=== PATIENT | male | born 1970 | race Caucasian/White ===

== ENCOUNTER 2024-02-05 18:44 | Observation (INO) | payer OTHER, SELFPAY ==
[2024-02-05 11:55] VITALS: BP 139/91
[2024-02-05 12:17] LABS: % Basophils 0.6 % (0-2); % Eosinophils 2.7 % (0-6); % Immature Granulocytes 0.2 % (0-0.5); % Lymphocytes 35.1 % (20.5-51.1); % Monocytes 5.5 % (1.7-9.3); % Neutrophils 55.9 % (42.2-75.2); Absolute Eosinophils 0.1 10^3/uL (0-0.7); Absolute Lymphocytes 1.9 10^3/uL (1.2-3.4); Absolute Monocytes 0.3 10^3/uL (0.1-0.6); Hematocrit 36.3 % (39.0-52.0); Mean Corp Hgb Conc. 56.7 g/dL (33.0-37.0); Mean Corpuscular Hgb 53.2 pg (27.0-31.0); Mean Corpuscular Volume 93.8 fL (80.0-94.0); Mean Platelet Volume 9.6 fL (7.4-10.4); Nucleated Red Blood Cells % 0 % (-); Platelet Count 285 10^3/uL (130-400); Red Blood Cell Count 3.87 10^6/uL (4.70-6.10); White Blood Cell Count 5.3 10^3/uL (4.8-10.8)
[2024-02-05 12:22] LABS: Hemoglobin 20.6 g/dL (13.0-18.0)
[2024-02-05 12:49] LABS: ALT (SGPT) 42 U/L (0-50); AST (SGOT) 37 U/L (17-59); Albumin 3.5 g/dl (3.5-5.0); Alkaline Phosphatase 68 U/L (38-126); Blood Urea Nitrogen 12 mg/dl (9-20); Calcium 9.1 mg/dl (8.4-10.2); Carbon Dioxide 17 mmol/L (22-30); Chloride 102 mmol/L (98-107); Glucose 132 mg/dl (70-99); Potassium 4.7 mmol/L (3.5-5.1); Sodium 133 mmol/L (135-145); Total Bilirubin 0.9 mg/dl (0.2-1.3); Total Protein 8.5 g/dl (6.3-8.2); eGFR > 60.00
--- NOTE | 2024-02-05 13:14 | ED.GENMED ---
History of Present Illness
General
Chief Complaint: Abnormal Lab Value
Source: patient and spouse
Time Seen by Provider: 02/05/24 12:35
Travel History
Have you had any contact with someone who has COVID-19?: No
Do you have any symptoms of coronavirus? Fever > 100 degrees, chills, cough, shortness of breath, sore throat, loss of taste or smell, muscle aches, or headache?: No
History of Present Illness
History of Present Illness:
53-year-old male presents to the emergency room at the advice of his primary care provider due to abnormal outpatient labs. Patient has been feeling significant pain in his joints particularly his knees, increased symptoms of neuropathy and whitish
pimples erupting all over his body for the past 3 weeks or so. Outpatient blood work was obtained by his primary care doctor and he was sent because his sodium level was measured to be 119. Blood work results were faxed from the primary care
doctor's office. It is noted on the fax results that he also has a triglyceride level of 12,000 and and a cholesterol level of 1110. Patient does have a history of diabetes. He states he is compliant with his medications. He does take
simvastatin. Patient denies any chest pain, abdominal pain, nausea or vomiting. He is having difficulty walking but it seems more related to his peripheral neuropathy and joint pain. He is not experiencing any confusion which is confirmed by his
. states the patient does drink a large amount of water a day approaching 2 gallons of water a day. He did increase his fluid intake over the past year.
Past History
Past History
ED Past Medical History: Hypercholesterolemia and IDDM
ED Past Surgical History: Orthopedic
Social History
Tobacco: Non-smoker
Personal: Single
Phy Exam
Physical Exam
Physical Exam:
General: Awake, Alert, Oriented X3. Patient appears stable but not practically healthy.
Vitals: unremarkable
Head: Atraumatic
Eyes: Pupils equal, EOMI
Throat: Airway intact, no exudates
Neck: Trachea midline
Lungs: Clear and equal b/l
Heart: Regular rate, no murmurs
Abd: Soft, Nontender, No pulsatile mass
Neuro: Nonfocal
Skin: Warm, dry, xanthomas noted diffusely
Extremities: pulses equal b/l, no edema
Course
Orders/Labs/Results
Orders:
Orders
02/05/24 11:59
Electrocardiogram (*1) Urgent
Reason for Study: Other
Other Reason for Exam: abnormal lab
EKG- Treatment ONCE
02/05/24 12:04
Cardiovascular Evaluation Urgent
Comment: ADD ON
Complete Blood Count/With Diff Urgent
Comprehensive Metabolic Panel Urgent
LDL Cholesterol, Direct Urgent
TSH Urgent
Comment: ADD ON
02/05/24 13:01
Add On- LAB Urgent
Tests Added?: lipid panel
02/05/24 18:01
Admit/Transfer Patient As Directed
Co-Sign Provider:
Level of Care: Observation services
Assign to:: Medical/Surgical
Physician / Group: Maria G
Diagnosis: Hyponatremia, hypertriglyceridemia
02/05/24 18:03
Code Status As Directed
Resuscitation Status: Full Code
02/05/24 18:26
Add On- LAB Routine
Tests Added?: TSH
Abnormal Lab Results
02/05/24
12:04
RBC 3.87 L 10^6/uL
(4.70-6.10)
Hgb 20.6 H* g/dL
(13.0-18.0)
Hct 36.3 L %
(39.0-52.0)
MCH 53.2 H pg
(27.0-31.0)
MCHC 56.7 H g/dL
(33.0-37.0)
Sodium 133 L mmol/L
(135-145)
Carbon Dioxide 17 L mmol/L
(22-30)
Glucose 132 H mg/dl
(70-99)
Total Protein 8.5 H g/dl
(6.3-8.2)
Triglycerides > 2625 H mg/dl
(10-149)
Total Cholesterol 986 H mg/dl
(50-199)
02/05/24 12:04
02/05/24 12:04
Vital Signs
Initial and Last Documented VS:
Initial Vital Signs
Temp Pulse Resp BP Pulse Ox
98.3 F 94 18 139/91 94
02/05/24 11:55 02/05/24 11:55 02/05/24 11:55 02/05/24 11:55 02/05/24 11:55
Last Documented Vital Signs
Temp Pulse Resp BP Pulse Ox
98.3 F 95 18 122/80 94
02/05/24 11:55 02/05/24 15:13 02/05/24 11:55 02/05/24 15:13 02/05/24 15:13
MDM/Problems Addressed
Differential Diagnosis Includes:
hyponatremia, pseudohyponatrenia,hypertriglyceridemia,
MDM/Problems Addressed:
Patient presents with markedly abnormal outpatient labs. Repeat labs here show a normal sodium. I had conversation with the director of pathology who reviewed the lab protocols for hyperlipemia. She does believe the processes were followed and
that the instrumentation they have is working properly and will automatically dilute the specimen and therefore there is no need for ultra centrifugation. Dr. Hall hypothesizes that the process of ultrasound review patient may have especially
lower the sodium. Similar the patient's hemoglobin is markedly abnormal here and normal on [facility]. I also discussed the patient's presentation with Dr. Hayes is on-call for endocrinology. She does not believe there is any urgent need for
plasmapheresis or an insulin drip as the patient is relatively asymptomatic. However she does endorse the idea of observing the patient overnight to check the stability of his lab findings.
*Pulse Oximetry
Patient hypoxic: no
*EKG
Interpreted by ED Provider?: Yes
Interpretation: normal
Heart Rate: 89
Rate: normal
[place]: normal axis
Interval: normal interval
QRS Pattern: right bundle branch block
Ischemia: no ischemia
*Frame Assembler Interpretation
Rate: normal
Interpretation: normal
Heart Rate: 89
Rhythm: sinus
*Critical Care Note
Total Time (30-74mins, 75-104mins- exclusive of procedures): Not Applicable
ED Attending Note
-
Portions of this chart may have been created with voice recognition software.� Occasional wrong word or��sound alike� substitutions may have occurred due to the inherent limitations of voice recognition software.
Discharge Plan
Departure
Patient Disposition: Admit
Date of Disposition: 02/05/24
Time of Disposition: 17:30
Admit to: Med/Surg
Presentation/result/management discussed w/ accepting MD/DO: Hospitalist
Condition: Fair
Discharge Problem:
Hypertriglyceridemia, Abnormal blood electrolyte level
Interventions
Interventions:
*Risk Screen - Suicide Last Done: 02/05/24 11:58
*General Assessment Last Done: 02/05/24 11:58
*Neglect/Abuse Screening Last Done: 02/05/24 11:58
[2024-02-05 14:00] LABS: HDL Cholesterol 16 mg/dl; Total Cholesterol 986 mg/dl (50-199); Triglyceride > 2625 mg/dl (10-149)
[2024-02-05 14:44] LABS: LDL Cholesterol, Direct 340 mg/dl
[2024-02-05 15:13] VITALS: BP 122/80
--- NOTE | 2024-02-05 18:05 | HPS.HSE ---
Family Physician
-
Family Physician: Bo De La Paz
Chief Complaint
-
Abnormal blood work
History of Present Illness
53-year-old male referred to the emergency room by his primary care doctor for evaluation of abnormal blood work.
Patient himself has no new complaints. He does have chronic peripheral neuropathy with pain in his lower extremities.
Does suffer from type 2 diabetes as well as combined hyperlipidemia.
Also suffers from chronic insomnia.
Medical History
Past Medical History
Past Medical History: Reports Other
Additional Past Medical History:
DM2
Diabetic peripheral neuropathy
combined hyperlipidemia
Past Surgical History: Reports Orthopedic
Social History
Tobacco: Non-smoker
Alcohol: None
Drug: None
Family History
Family History: Not pertinent
Allergies / Home Medications
Allergies reflects when Allergies were last updated in [facility].
Home Medications with original date entered in [facility]
Allergy/Medication List:
Allergies
Allergy/AdvReac Type Severity Reaction Status Date / Time
aspirin Allergy Severe Unknown Verified 02/05/24 11:55
Home Medications
acetaminophen 500 mg tablet (Tylenol Extra Strength) 1,000 mg PO DAILY 02/05/24
acetylcysteine 600 mg capsule (NAC) 600 mg PO DAILY 02/05/24
celecoxib 200 mg capsule 200 mg PO DAILY 02/05/24
cyanocobalamin (vitamin B-12) 1,000 mcg tablet 2,000 mcg PO DAILY 02/05/24
dulaglutide 3 mg/0.5 mL subcutaneous pen injector (Trulicity) 3 mg SC MO@2200 02/05/24
empagliflozin 25 mg tablet (Jardiance) 25 mg PO DAILY 02/05/24
fenofibric acid (choline) 135 mg capsule,delayed release 135 mg PO DAILY 02/05/24
folic acid 800 mcg tablet 0.8 mg PO DAILY 02/05/24
glipizide 5 mg tablet 10 mg PO QPM 02/05/24
ibuprofen 200 mg tablet (Motrin IB) 600 mg PO QPM 02/05/24
metformin 1,000 mg tablet 1,000 mg PO BID 02/05/24
pregabalin 300 mg capsule 300 mg PO BID 02/05/24
pyridoxine (vitamin B6) 100 mg tablet 100 mg PO DAILY 02/05/24
simvastatin 40 mg tablet 40 mg PO DAILY 02/05/24
therapeutic multivitamin 1 tab PO DAILY 02/05/24
tramadol 50 mg tablet 100 mg PO HS 02/05/24
Review of Systems
-
History Source: Patient
A 12 point ROS was completed and negative except as noted: Yes
Physical Exam
Vital Signs
Vital Signs
Temp Pulse Resp BP Pulse Ox
98.3 F 95 18 122/80 94
02/05/24 11:55 02/05/24 15:13 02/05/24 11:55 02/05/24 15:13 02/05/24 15:13
Physical Exam
General: Well Developed, Well Nourished, No Apparent Distress and Comfortable
HEENT: NormoCephalic, Anicteric and Moist mucous membranes
Respiratory: Clear
Cardiac: S1/S2 and Regular Rhythm
GI: Soft, Non Tender and Non Distended
Genito-urinary: Deferred by me
Musculoskeletal: No Clubbing, No Cyanosis and No Edema
Skin: Warm and Dry
Neuro: AO x 3
Hematologic/Lymphatic: No Lymphadenopathy
Psych: Calm
Laboratory Results
-
02/05/24 12:04
02/05/24 12:04
Laboratory Results
Total Bilirubin 0.9 mg/dl (0.2-1.3) 02/05/24 12:04
AST 37 U/L (17-59) 02/05/24 12:04
ALT 42 U/L (0-50) 02/05/24 12:04
Alkaline Phosphatase 68 U/L (38-126) 02/05/24 12:04
Impression/Plan
-
Hyponatremia -sodium on our lab is 133. He admits to drinking 2 gallons of water daily. Recommend fluid restriction, 1-1/2 to 2 L daily. Discussed with patient and .
Suspect hyperglycemia at home also triggers his thirst. Ideally better glucose control should help improve this.
Combined hyperlipidemia -he follows up with his primary care doctor and and fixed wing aircraft crew chief. This will need to be addressed as an outpatient. Weight loss should help with his lipid levels as well as diabetes control.
DM2 with hyperglycemia -will resume home meds. Check hemoglobin A1c. Use low resistance scale. Follow-up with fixed wing aircraft crew chief.
Diabetic peripheral neuropathy
Chronic insomnia -recommend outpatient follow-up with sleep specialist. Needs to work on sleep hygiene.
Obesity due to excess calories -weight loss encouraged.
Full code
updated at the bedside.
[2024-02-05 19:11] LABS: TSH 0.88 uIU/ml (0.47-4.68)
[2024-02-05 20:18] VITALS: BP 141/78
--- NOTE | 2024-02-05 21:00 | PTCARENOTE ---
Received patient from ED via stretcher. Patient ambulated from stretcher to bed independently. AAOx3, no current complaints of pain. Oriented patient to room and placed call montesinos within reach.
[2024-02-05 21:02] VITALS: BP 156/90; BMI 26.4
[2024-02-05 21:03] LABS: Glucose - Point of Care 176 mg/dl (70-99)
[2024-02-05] MEDS: GLUCOPHAGE PO (22:27)
[2024-02-05] MEDS: ULTRAM 100 MG PO (22:27)
[2024-02-05 23:34] VITALS: BP 129/79
[2024-02-06 07:00] VITALS: BP 138/87
[2024-02-06 08:10] LABS: Glucose - Point of Care 141 mg/dl (70-99)
[2024-02-06 08:25] LABS: Blood Urea Nitrogen 19 mg/dl (9-20); Calcium 8.7 mg/dl (8.4-10.2); Carbon Dioxide 18 mmol/L (22-30); Chloride 103 mmol/L (98-107); Estimated Creatinine Clearance 91 ml/min; Glucose 123 mg/dl (70-99); Potassium 4.5 mmol/L (3.5-5.1); Sodium 134 mmol/L (135-145); eGFR > 60.00
[2024-02-06] MEDS: VITAMIN B-12 2000 MCG PO (08:42)
[2024-02-06] MEDS: VITAMIN B-6 100 MG PO (08:42)
[2024-02-06] MEDS: TYLENOL 1000 MG PO (08:42)
[2024-02-06] MEDS: TRICOR 145 MG PO (08:42)
[2024-02-06] MEDS: JARDIANCE 25 MG PO (08:42)
[2024-02-06] MEDS: FOLVITE 0.800000000000000044 MG PO (08:42)
[2024-02-06] MEDS: THERAGRAN 1 TABLET PO (08:42)
[2024-02-06] MEDS: CELEBREX 200 MG PO (08:42)
[2024-02-06] MEDS: GLUCOPHAGE 1000 MG PO (08:43)
[2024-02-06 08:49] LABS: % Basophils 0.4 % (0-2); % Eosinophils 1.6 % (0-6); % Immature Granulocytes 0.3 % (0-0.5); % Lymphocytes 34.2 % (20.5-51.1); % Monocytes 8.9 % (1.7-9.3); % Neutrophils 54.6 % (42.2-75.2); Absolute Eosinophils 0.1 10^3/uL (0-0.7); Absolute Lymphocytes 2.3 10^3/uL (1.2-3.4); Absolute Monocytes 0.6 10^3/uL (0.1-0.6); Absolute Neutrophils 3.7 10^3/uL (1.4-6.5); Hematocrit 34.3 % (39.0-52.0); Hemoglobin 17.9 g/dL (13.0-18.0); Mean Corpuscular Hgb 48.1 pg (27.0-31.0); Mean Corpuscular Volume 92.2 fL (80.0-94.0); Mean Platelet Volume 10.1 fL (7.4-10.4); Nucleated Red Blood Cells % 0 % (-); Platelet Count 279 10^3/uL (130-400); Red Blood Cell Count 3.72 10^6/uL (4.70-6.10); White Blood Cell Count 6.8 10^3/uL (4.8-10.8)
[2024-02-06 08:51] LABS: Mean Corp Hgb Conc. 52.2 g/dL (33.0-37.0)
--- NOTE | 2024-02-06 08:51 | W.PN.HOSP.TC ---
Today's Communication/Plan
-
Discharge
Assessment / Plan
Assessment / Plan
Gen-AAOx3, NAD
HEENT-NC, AT, anicteric, clear oral mm
Neck-supple
CV-reg, no M, +S1/S2
Lungs-clear B/L
Abd-soft, NT, ND
Ext-no edema
Musculoskeletal-no cyanosis, clubbing, multiple xanthomas on his extremities
Skin-warm and dry
Neuro-grossly non-focal
Psych-calm, cooperative
Hyponatremia -sodium 134 today. Continue 1.5 to 2 L/day fluid restriction. Discussed with patient.
Combined hyperlipidemia -he follows up with his primary care doctor and and program manager.� This will need to be addressed as an outpatient.� Weight loss should help with his lipid levels as well as diabetes control.
DM2 with hyperglycemia -will resume home meds.� Check hemoglobin A1c.� Use low resistance scale.� Follow-up with program manager.
Diabetic peripheral neuropathy
Chronic insomnia -recommend outpatient follow-up with sleep specialist.� Needs to work on sleep hygiene.
Obesity due to excess calories -weight loss encouraged.
Full code
Dispo -medically stable for discharge today. Outpatient follow-up recommended. Discussed with on the phone.
32 minutes spent in discharge process.
Anticipated Discharge: Today
Subjective/Interval History
-
Date of Service: February 06, 2024
Patient seen and examined. Eager to go home. No complaints.
Objective Data
-
Labs:
Laboratory Results
02/06/24
07:04
WBC Pending
Hgb Pending
Hct Pending
Plt Count Pending
Sodium 134 L
Potassium 4.5
Chloride 103
Carbon Dioxide 18 L
BUN 19
Creatinine 0.9
Glucose 123 H
Calcium 8.7
Vital Signs:
Vital Signs
Temp Pulse Resp BP Pulse Ox
97.6 F 80 18 138/87 97
02/06/24 07:00 02/06/24 07:00 02/06/24 07:00 02/06/24 07:00 02/06/24 07:00
I&O
02/05/24 02/06/24 02/07/24
06:59 06:59 06:59
Intake Total 240 / 240
Balance 240 / 240
Review of Systems
-
History Source: Patient
All other systems: Reviewed and negative
--- NOTE | 2024-02-06 09:29 | CM ---
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
PCP: Allison De La Paz
Plan; Home today no needs.
--- NOTE | 2024-02-06 09:31 | W.DS.TRANS ---
DC Summary - Hat Model
-
Discharge Instructions:
Discharge Diagnosis/Procedures Hyponatremia, mixed hyperlipidemia
Diet Low Fat,Low Cholesterol,Diabetic, Carb
Controlled
Activity As tolerated
Driving Restrictions As prior to admission
Bathing Restrictions None
Instructions:
Stand-Alone Forms:
Changes to Home Medications: No
Discharge Medications:
DC Medications w/original date entered in [facility]
acetaminophen 500 mg tablet (Tylenol Extra Strength) 1,000 mg PO DAILY Pain 02/05/24
acetylcysteine 600 mg capsule (NAC) 600 mg PO DAILY Lung/Breathing Issues 02/05/24
celecoxib 200 mg capsule 200 mg PO DAILY Pain 02/05/24
cyanocobalamin (vitamin B-12) 1,000 mcg tablet 2,000 mcg PO DAILY Supplement 02/05/24
dulaglutide 3 mg/0.5 mL subcutaneous pen injector (Trulicity) 3 mg SC MO@2200 Diabetes 02/05/24
empagliflozin 25 mg tablet (Jardiance) 25 mg PO DAILY Diabetes 02/05/24
fenofibric acid (choline) 135 mg capsule,delayed release 135 mg PO DAILY High Cholesterol 02/05/24
folic acid 800 mcg tablet 0.8 mg PO DAILY Supplement 02/05/24
glipizide 5 mg tablet 10 mg PO QPM Diabetes 02/05/24
ibuprofen 200 mg tablet (Motrin IB) 600 mg PO QPM Pain 02/05/24
metformin 1,000 mg tablet 1,000 mg PO BID Diabetes 02/05/24
pregabalin 300 mg capsule 300 mg PO BID Neurological Condition 02/05/24
pyridoxine (vitamin B6) 100 mg tablet 100 mg PO DAILY Supplement 02/05/24
simvastatin 40 mg tablet 40 mg PO DAILY High Cholesterol 02/05/24
therapeutic multivitamin 1 tab PO DAILY Supplement 02/05/24
tramadol 50 mg tablet 100 mg PO HS Sleep 02/05/24
Home Medication Changes
Pending Results: No
--- NOTE | 2024-02-06 10:01 | PTCARENOTE ---
Reviewed discharge instructions with patient. Patient verbalizes understanding all education including need for follow up. IV removed. Patient left unit ambulatory as he refused a wheelchair.
[2024-02-06 11:19] LABS: Glycohemoglobin (HgbA1c) 7.4 % (4.0-5.6)
== END 2024-02-06 10:22 | disposition home or self-care (01) ==
LOC: 4 EAST ACU 18:44
PROVIDERS: Emergency Medicine; ADMITTING PHYSICIAN Hospitalist; EMERGENCY PHYSICIAN Emergency Medicine; FAMILY PHYSICIAN Family Medicine
DX: E87.1 Hypo-osmolality and hyponatremia (principal); E78.2 Mixed hyperlipidemia; E11.42 Type 2 diabetes mellitus with diabetic polyneuropathy; F51.04 Psychophysiologic insomnia; E11.65 Type 2 diabetes mellitus with hyperglycemia; I45.10 Unspecified right bundle-branch block; E66.09 Other obesity due to excess calories; Z88.6 Allergy status to analgesic agent; Z79.1 Long term (current) use of non-steroidal anti-inflammatories (NSAID); Z79.85 Long-term (current) use of injectable non-insulin antidiabetic drugs; Z79.84 Long term (current) use of oral hypoglycemic drugs; Z68.26 Body mass index [BMI] 26.0-26.9, adult
CPT/HCPCS: 80048; 80053; 80061; 82962; 83036; 83721; 84443; 85025; 93005; 99285; G0378

== ENCOUNTER → 2024-03-15 13:19 | Outpatient (REF) | payer OTHER, SELFPAY | LOC: PAVMRI 13:19 | PROVIDERS: ATTENDING PHYSICIAN Family Medicine | DX: M51.26 Other intervertebral disc displacement, lumbar region (principal) | CPT/HCPCS: 72148 ==

== ENCOUNTER → 2024-04-20 14:38 | Outpatient (REF) | payer OTHER, SELFPAY | LOC: HWRCS 14:38 | PROVIDERS: ATTENDING PHYSICIAN Internal Medicine Cardiovascular Disease; FAMILY PHYSICIAN Family Medicine | DX: I45.10 Unspecified right bundle-branch block (principal) | CPT/HCPCS: 93306 ==

== ENCOUNTER 2025-01-20 07:24 | Inpatient (IN) | payer OTHER, SELFPAY ==
[2025-01-19] VITALS (8 sets, daily range): BP systolic 138–151; BP diastolic 88–97; BMI 25.7
[2025-01-19 16:17] LABS: ALT (SGPT) 36 U/L (0-50); AST (SGOT) 34 U/L (17-59); Albumin 3.1 g/dl (3.5-5.0); Alkaline Phosphatase 62 U/L (38-126); Blood Urea Nitrogen 12 mg/dl (9-20); Calcium 8.2 mg/dl (8.4-10.2); Carbon Dioxide 10 mmol/L (22-30); Chloride 95 mmol/L (98-107); Glucose 242 mg/dl (70-99); Potassium 4.1 mmol/L (3.5-5.1); Sodium 128 mmol/L (135-145); Total Protein 8.1 g/dl (6.3-8.2); eGFR > 60.00
[2025-01-19 16:47] LABS: % Basophils 0.6 % (0-2); % Eosinophils 2.7 % (0-6); % Immature Granulocytes 0.4 % (0-0.5); % Lymphocytes 15.9 % (20.5-51.1); % Monocytes 7.8 % (1.7-9.3); % Neutrophils 72.6 % (42.2-75.2); Absolute Eosinophils 0.1 10^3/uL (0-0.7); Absolute Lymphocytes 0.8 10^3/uL (1.2-3.4); Absolute Monocytes 0.4 10^3/uL (0.1-0.6); Absolute Neutrophils 3.6 10^3/uL (1.4-6.5); Hematocrit 30.5 % (39.0-52.0); Hemoglobin 9.8 g/dL (13.0-18.0); Mean Corp Hgb Conc. 32.1 g/dL (33.0-37.0); Mean Corpuscular Hgb 32.1 pg (27.0-31.0); Mean Platelet Volume 9.6 fL (7.4-10.4); Nucleated Red Blood Cells % 0 % (-); Platelet Count 192 10^3/uL (130-400); Red Blood Cell Count 3.05 10^6/uL (4.70-6.10); Red Cell Dist. Width 13.7 % (11.5-14.5); White Blood Cell Count 4.9 10^3/uL (4.8-10.8)
--- NOTE | 2025-01-19 18:07 | ED.GENMED ---
History of Present Illness
General
Chief Complaint: Abnormal Lab Value
Time Seen by Provider: 01/19/25 17:57
History of Present Illness
History of Present Illness:
Patient presents to the emergency department with nausea vomiting, weight loss, low sodium on outpatient labs. Patient notes that he had a sinus infection last week and was started on Ceftin. Since then he has been having very elevated blood
sugars with sugars usually in the 300s. Over the past few days he has had significant nausea and vomiting and has lost about 10 pounds over the past few days. Denies fevers or chills. Denies pain. Denies significant from rectum or orally.
Past History
Past History
ED Past Medical History: Hypercholesterolemia and IDDM
ED Past Surgical History: Orthopedic
Social History
Tobacco: Non-smoker
Personal: Single
Phy Exam
Physical Exam
Physical Exam:
GENERAL APPEARANCE: Pale, in no acute distress
EYES lids/conjunctiva normal
EARS/NOSE/THROAT Mucous membranes moist, uvula midline without oral pharyngeal erythema, exudate or swelling
HEAD/NECK normocephalic atraumatic, neck is supple.
RESPIRATORY respiratory effort normal, speaks in full sentences, no accessory muscle use. Lungs clear to auscultation without rhonchi, wheezes, rales
CARDIAC regular tachycardia
ABDOMINAL Soft, ND/NT. No pulsatile masses on exam, rebound tenderness, Chaudhari sign or pain over Mcburney's point.
MUSCLES/EXTREMITIES No abnormal range of motion, no swelling.
SKIN Warm, pink and dry. No rashes
NEUROLOGICAL Speech is clear and appropriate. Normal level of consciousness. 5/5 strength in all extremities.
PSYCH Normal mood and affect. Judgement/competence is appropriate
Course
Orders/Labs/Results
Orders:
Orders
01/19/25 15:20
CMP [Comprehensive Metabolic Panel] Urgent
Complete Blood Count/With Diff Urgent
01/19/25 18:05
0.9% Sodium Chloride 1000 ml [Nss] 1,000 ml IV BOLUS
0.9% Sodium Chloride 1000 ml [Nss] 1,000 ml IV BOLUS
01/19/25 18:23
B-Hydroxybutyrate Urgent
Glycohemoglobin (HgbA1c) Urgent
Lactate Level [Lactic Acid] Urgent
Venous Blood Gas Urgent
%Oxygen/Room Air: room air
01/19/25 20:23
Basic Metabolic Panel Urgent
Complete Blood Count/No Diff Urgent
Urinalysis Urgent
Date Specimen was Collected: 01/19/25
Time Specimen was Collected: 19:45
Urine Microscopic Urgent
Date Specimen was Collected: 01/19/25
Time Specimen was Collected: 19:45
01/19/25 21:52
Add On- LAB Stat
Tests Added?: lipase, etoh
01/19/25 21:53
Add On- LAB Stat
Tests Added?: triglecyrides
Abnormal Lab Results
01/19/25 01/19/25 01/19/25
15:20 18:23 20:23
RBC 3.05 L 10^6/uL
(4.70-6.10)
Hgb 9.8 L g/dL
(13.0-18.0)
Hct 30.5 L %
(39.0-52.0)
MCV 100.0 H fL
(80.0-94.0)
MCH 32.1 H pg
(27.0-31.0)
MCHC 32.1 L g/dL
(33.0-37.0)
Absolute Lymphs (auto) 0.8 L 10^3/uL
(1.2-3.4)
Lymphocytes % 15.9 L %
(20.5-51.1)
VBG pO2 57 H mmHg
(30-50)
Sodium 128 L mmol/L 132 L mmol/L
(135-145) (135-145)
Chloride 95 L mmol/L
(98-107)
Carbon Dioxide 10 L* mmol/L 13 L* mmol/L
(22-30) (22-30)
Glucose 242 H mg/dl 105 H mg/dl
(70-99) (70-99)
Calcium 8.2 L mg/dl 7.4 L mg/dl
(8.4-10.2) (8.4-10.2)
Albumin 3.1 L g/dl
(3.5-5.0)
Urine Ketones 3+ A
(Negative)
Urine Occult Blood 4+ A
(Negative)
Urine RBC 30-40 A /HPF
(0-2)
Urine Bacteria Few A
(Negative)
Urine Yeast Few A
(Negative)
Urine Glucose 4+ A
(Negative)
Urine Albumin 3+ A
(Neg - Trace)
01/19/25 20:23
Vital Signs
Initial and Last Documented VS:
Initial Vital Signs
Temp Pulse Resp BP Pulse Ox
97.3 F 119 20 140/94 95
01/19/25 15:11 01/19/25 15:11 01/19/25 15:11 01/19/25 15:11 01/19/25 15:11
Last Documented Vital Signs
Temp Pulse Resp BP Pulse Ox
97.3 F 105 17 142/97 95
01/19/25 15:11 01/19/25 19:45 01/19/25 19:45 01/19/25 19:00 01/19/25 19:45
*Critical Care Note
Total Time (30-74mins, 75-104mins- exclusive of procedures): Not Applicable
ED Attending Note
ED Attending Note
ED Attending Note:
presents with nausea and vomiting x 2 days , 10lb weight loss over past week
initial labs with BG 242, Na 128, CO2 10, Cr 0.8 , AG 23
urine ketones +, BHB negative, lactate negative
given 2L NS
repeat BMP with improving glucose to 102, Na 132, CO13, AG17
VBG with ph 7.38, pCO2 41
initial concern was for normoglycemic DKA since he is on Jardiance
however it just seems like he has a significant ketosis without acidosis
I have just been giving fluid and gap is closing
no abdominal tenderness to suggest intraabdominal emergency.
Patient also noted to have a macrocytic anemia of unclear etiology
no active bleeding reported, no evdience of internal injury or hemolysis
will admit to hospitalist for further management and workup
-
Portions of this chart may have been created with voice recognition software.� Occasional wrong word or��sound alike� substitutions may have occurred due to the inherent limitations of voice recognition software.
Discharge Plan
Departure
Patient Disposition: Admit
Date of Disposition: 01/19/25
Time of Disposition: 21:42
Presentation/result/management discussed w/ accepting MD/DO: Hospitalist
Discharge Problem:
Acute hyponatremia, Diabetic ketosis
Prescriptions:
No Action
tramadol 50 mg Tablet
100 mg PO HS
acetaminophen [Tylenol Extra Strength] 500 mg Tablet
500 mg PO Q6HPRN PRN (Reason: mild pain)
metformin 1,000 mg Tablet
1,000 mg PO BID
glipizide 5 mg Tablet
10 mg PO QPM
Jardiance 25 mg Tablet
25 mg PO DAILY
Trulicity 3 mg/0.5 mL Pen Injector
3 mg SC FR
cyclobenzaprine 10 mg Tablet
10 mg PO HS
gabapentin 600 mg Tablet
600 mg PO BID
cefuroxime axetil 250 mg Tablet
250 mg PO BID
ondansetron [Zofran ODT] 8 mg Tablet,Disintegrating
8 mg PO Q8HPRN PRN (Reason: nausea)
rosuvastatin 10 mg Tablet
10 mg PO DAILY
eszopiclone [Lunesta] 3 mg Tablet
3 mg PO HS
icosapent ethyl 1 gram Capsule
2 g PO BID
Referrals:
Bo De La Paz, DO [Family Provider] -
Interventions
Interventions:
*Risk Screen - Suicide Last Done: 01/19/25 15:15
*General Assessment Last Done: 01/19/25 18:31
*Neglect/Abuse Screening Last Done: 01/19/25 18:31
*ED COVID-19 Vaccine History Last Done: 01/19/25 18:31
Discharge Date and Time
Print Language: LATVIAN
[2025-01-19] MEDS: NSS 1000 IV ×2 (18:24→18:25)
[2025-01-19 18:32] LABS: Venous Blood Gas B.E. -0.9 mmol/L (-4 to +4); Venous Blood Gas HCO3 24.3 mmol/L (22-27); Venous Blood Gas O2 Sat % 94.6 %; Venous Blood Gas pCO2 41 mmHg (35-48); Venous Blood Gas pH 7.38 (7.32-7.43); Venous Blood Gas pO2 57 mmHg (30-50)
[2025-01-19 18:44] LABS: Lactic Acid 1.2 mmol/L (0.7-2.0)
[2025-01-19 20:11] LABS: B-Hydroxybutyrate 0.08 mmol/L (0.02-0.27)
[2025-01-19 20:34] LABS: Urine Albumin 3+ (Neg - Trace); Urine Bilirubin Negative (Negative); Urine Character Clear (Clear); Urine Color Yellow; Urine Glucose 4+ (Negative); Urine Ketone 3+ (Negative); Urine Leukocyte Negative (Negative); Urine Nitrite Negative (Negative); Urine Occult Blood 4+ (Negative); Urine Urobilinogen Negative (Neg - 1+)
[2025-01-19 21:27] LABS: Blood Urea Nitrogen 13 mg/dl (9-20); Calcium 7.4 mg/dl (8.4-10.2); Carbon Dioxide 13 mmol/L (22-30); Chloride 102 mmol/L (98-107); Glucose 105 mg/dl (70-99); Potassium 3.6 mmol/L (3.5-5.1); Sodium 132 mmol/L (135-145); eGFR > 60.00
[2025-01-19 21:28] LABS: Urine Squamous Cell 0-2 /LPF (Few)
[2025-01-19 21:29] LABS: Urine Bacteria Few (Negative); Urine Red Blood Cell 30-40 /HPF (0-2); Urine White Cell 0-2 /HPF (0-5); Urine Yeast Few (Negative)
[2025-01-19 21:58] LABS: Red Blood Cell Count 3.91 10^6/uL (4.70-6.10); White Blood Cell Count 7.8 10^3/uL (4.8-10.8)
[2025-01-19 22:00] LABS: Platelet Count 249 10^3/uL (130-400)
[2025-01-19 22:01] LABS: Hemoglobin 14.3 g/dL (13.0-18.0)
--- NOTE | 2025-01-19 22:19 | HPS.HSE ---
Family Physician
-
Family Physician: Bo De La Paz
Chief Complaint
-
Abnormal lab values
History of Present Illness
This is a 54-year-old male with past medical history of diabetes, hypertriglyceridemia, presenting to the emergency department for evaluation of abnormal lab work.
He had a routine follow-up lab work for endocrine clinic that showed low sodium and low bicarb. Patient was sent to the emergency department for evaluation of this finding. Patient and spouse reports few days of sinus illness. He has sinus
congestion and was diagnosed with sinusitis. Was started on Ceftin. The patient also has been having nausea and vomiting for the last 2 days. Spouse reports urine output has been similar to prior. He has a continuous glucose monitoring and
spouse reported that it has been elevated for the last 3 days to as high as 300s. Patient himself denies any abdominal pain. He has been compliant with his usual medications. They have been compliant with his diet. He denies polyuria. He does
not feel polydipsia. He states he is lost about 10 pounds over the last 3 days. Denies any fevers or chills. Denies any lightheadedness or dizziness. He denies any headaches. Denies any vision changes.
Patient denies any ingestions including alcohol, recreational drugs, or NSAIDs. Reports using Tylenol about 1 g daily with last 2 to 3 weeks. Denies chronic Tylenol use otherwise.
In the emergency department he was afebrile, blood pressure was 140/90 pulse of 105 respiratory rate of 17 satting 95% on room air. CBC was notable for hemoglobin of 9.8 which is down from 17 a year ago. Platelet count was normal. MCV was
elevated at 100. Sodium was 128, potassium 4.1, bicarb 10 BUN/creatinine were 12 and 0.8 with a glucose of 245. Venous blood gas was 7 point 3/41/57/20 4.3. 3+ urine ketones. Beta-hydroxybutyrate was negative.
Given 2 L of normal saline. Repeat labs showed sodium of 132, potassium 3.6, bicarb 13. Chloride 102. Glucose 104. The anion gap was 17. LFTs normal.
Medical History
Past Medical History
Past Medical History: Reports Hypercholesterolemia (Severe triglyceridemia), NIDDM and Other (Duodenal ulcer)
Additional Past Medical History:
Hepatitis B no treatment
Benitez's palsy
History of Lyme disease
Past Surgical History: Reports Other (Tarsal tunnel release, history of hand surgeries)
Social History
Tobacco: Non-smoker
Alcohol: None
Drug: None
Personal:
Living: With Family
Employment: Not Employed
Family History
Family History: Not pertinent
Allergies / Home Medications
Allergies reflects when Allergies were last updated in [facility].
Home Medications with original date entered in [facility]
Allergy/Medication List:
Allergies
Allergy/AdvReac Type Severity Reaction Status Date / Time
aspirin Allergy Severe Unknown Verified 01/19/25 15:12
Home Medications
acetaminophen 500 mg tablet (Tylenol Extra Strength) 500 mg PO Q6HPRN PRN mild pain 02/05/24
dulaglutide 3 mg/0.5 mL subcutaneous pen injector (Trulicity) 3 mg SC FR Diabetes 02/05/24
empagliflozin 25 mg tablet (Jardiance) 25 mg PO DAILY Diabetes 02/05/24
glipizide 5 mg tablet 10 mg PO QPM Diabetes 02/05/24
metformin 1,000 mg tablet 1,000 mg PO BID Diabetes 02/05/24
tramadol 50 mg tablet 100 mg PO HS Sleep 02/05/24
cefuroxime axetil 250 mg tablet 250 mg PO BID 01/19/25
cyclobenzaprine 10 mg tablet 10 mg PO HS 01/19/25
eszopiclone 3 mg tablet (Lunesta) 3 mg PO HS 01/19/25
gabapentin 600 mg tablet 600 mg PO BID 01/19/25
icosapent ethyl 1 gram capsule 2 g PO BID 01/19/25
ondansetron 8 mg disintegrating tablet 8 mg PO Q8HPRN PRN nausea 01/19/25
rosuvastatin 10 mg tablet 10 mg PO DAILY 01/19/25
Review of Systems
-
History Source: Patient
Constitutional: Reports Weight Loss and Fatigue
EENT: Reports Runny Nose
Respiratory: Reports No Symptoms
Cardiac: Reports No Symptoms
Abdomen/GI: Reports Nausea and Vomiting; Denies Diarrhea, Constipated or Pain
: Reports No Symptoms
Musculoskeletal: Reports No Symptoms
Skin: Reports No Symptoms
Neurological: Reports No Symptoms
Endocrine: Reports No Symptoms
Hematologic/Lymphatic: Reports No Symptoms
Psych: Reports No Symptoms
Physical Exam
Vital Signs
Vital Signs
Temp Pulse Resp BP Pulse Ox
97.3 F 105 17 142/97 95
01/19/25 15:11 01/19/25 19:45 01/19/25 19:45 01/19/25 19:00 01/19/25 19:45
Physical Exam
General: Well Developed, No Apparent Distress, Comfortable and Conversant
HEENT: NormoCephalic, Anicteric, Moist mucous membranes and Atraumatic
Respiratory: Clear
Cardiac: S1/S2 and Regular Rhythm
Breast: Deferred by me
GI: Soft, Non Tender, Non Distended and Normal Bowel Sounds
Rectal: Deferred by Provider
Genito-urinary: Deferred by me
Musculoskeletal: No Clubbing, No Cyanosis and No Edema
Skin: Warm and Other (occasional xanthoma papuls in LE)
Neuro: AO x 3 and Nonfocal/grossly intact
Hematologic/Lymphatic: No Lymphadenopathy
Psych: Calm
Laboratory Results
-
01/19/25 20:23
01/19/25 20:23
Laboratory Results
Lactic Acid 1.2 mmol/L (0.7-2.0) 01/19/25 18:23
Total Bilirubin 1.0 mg/dl (0.2-1.3) 01/19/25 15:20
AST 34 U/L (17-59) 01/19/25 15:20
ALT 36 U/L (0-50) 01/19/25 15:20
Alkaline Phosphatase 62 U/L (38-126) 01/19/25 15:20
Data Reviewed
-
Lab Data: Labs Reviewed by me
Old Records: Reviewed
Impression/Plan
-
IMPRESSION:
54-year-old with hypertriglyceridemia, diabetes, peptic ulcer disease presents to the emergency department from home after being found to have abnormal labs. He has had about 3 to 4 days of nausea vomiting without diarrhea. Elevated blood glucoses
at home but now normal. Denies polyuria polydipsia. Treated for sinus infection. Labs consistent with anion gap and non-anion gap acidosis but VBG appears completely normal and inconsistent with the chemistry. Sodium was 132. The repeat
hemoglobin improved from 9.8-14 so concern for some lab error.
PLAN:
Metabolic anomaly -hyponatremia with anion gap and non-anion gap acidosis. Beta-hydroxybutyrate is negative. He does have urine ketones. Suspect possibly diabetic ketoacidosis with loss of serum ketones and self correction of acidemia. However
VBG is not c/w this. Other etiology of AG acidosis would be chronic tylenol use with oxoproline acidosis. Final labs may be affected by severe triglyceridemia.
- admit to med/surg as no indication for insulin gtt at this time
- start normal 1/2 NS + 75 meq of bicarb
- check etoh, lipase, serum osm for osmolar gap and triglyceride levels
- diet as tolerate for now
Diabetes
- hold metformin
- insulin sliding scale moderate dose
- continue glipizide
- hold jardiance
Hypertrig
- levels pending
- continue rosuvastatin
DVT PPX - lovenox sq
Code status - Full Code
[2025-01-19 22:34] LABS: Osmolality Serum 301 mOsm/kg (275-300)
[2025-01-19 22:36] LABS: Alcohol None Detected
[2025-01-19 22:51] LABS: Triglycerides > 2625 mg/dl (10-149)
[2025-01-19 23:02] LABS: Lipase 78 U/L (23-300)
[2025-01-19 23:57] LABS: Glucose - Point of Care 185 mg/dl (70-99)
--- NOTE | 2025-01-20 00:15 | PTCARENOTE ---
Patient arrived from ED, with spouse at bedside. VSS. Patient denies pain. AAO x 4. Bilateral lower extremity neuropathy present. Patient denies prior to admission falls. IV fluids with sodium bicarb initiated. Urine collected and sent to lab. OOB
independent. Patient oriented to room. Bed in lowest position. Call montesinos and personal belongings within reach.
[2025-01-20] MEDS: SODIUM BICARBONATE 1075 MEQ IV (00:19)
[2025-01-20 01:23] LABS: Osmolality Urine 816 mOsm/kg (300-900)
[2025-01-20 01:31] LABS: Urine Sodium 44 mmol/L (30-90)
[2025-01-20] MEDS: AMBIEN 10 MG PO ×2 (01:31→21:19)
[2025-01-20] MEDS: ZOFRAN 4 MG IV (03:45)
[2025-01-20 06:50] LABS: Venous Blood Gas B.E. 0.8 mmol/L (-4 to +4); Venous Blood Gas HCO3 27.1 mmol/L (22-27); Venous Blood Gas O2 Sat % 99.3 %; Venous Blood Gas pCO2 49 mmHg (35-48); Venous Blood Gas pH 7.35 (7.32-7.43); Venous Blood Gas pO2 75 mmHg (30-50)
[2025-01-20 07:30] VITALS: BP 159/99
[2025-01-20 07:44] LABS: Glucose - Point of Care 172 mg/dl (70-99)
[2025-01-20 07:58] LABS: Blood Urea Nitrogen 12 mg/dl (9-20); Carbon Dioxide 21 mmol/L (22-30); Chloride 102 mmol/L (98-107); Estimated Creatinine Clearance 115 ml/min; Glucose 145 mg/dl (70-99); Magnesium 1.6 mg/dl (1.6-2.3); Potassium 3.9 mmol/L (3.5-5.1); Sodium 132 mmol/L (135-145); eGFR > 60.00
[2025-01-20] MEDS: SODIUM BICARBONATE IV (08:57)
[2025-01-20 09:08] LABS: Glycohemoglobin (HgbA1c) 9.5 % (4.0-5.6)
[2025-01-20 09:12] LABS: White Blood Cell Count 5.5 10^3/uL (4.8-10.8)
[2025-01-20 09:13] LABS: Red Blood Cell Count 3.42 10^6/uL (4.70-6.10)
--- NOTE | 2025-01-20 09:15 | W.PN.HOSP.TC ---
Today's Communication/Plan
-
see PN
Assessment / Plan
Assessment / Plan
54yo M with PMHx of trygliceridemia, DM, insomnia came with nausea, vomiting for 5 days associated with 10lbs weight loss. On admission found with acidosis. Symptoms rapidly resolved on hydration. No concern for DKA or HHS on admission with normal
BHB and serum osm 301. Labs also significantly impaired by excessive trygliceridemia
Was recently started on ceftin for sinus infection
A/P:
#Trygliceridemia
lipase WNL
extensive N/V resolved next day
low fat diet
follow triglycerides, start fenofibrate when close to 1000
CT abd/pelvis
Stop ceftin - not a choice for sinus infection also no symptoms at this moment
#DM type 2 with neuropathy
Insulin SS, accuchecks, DM diet
#Insomnia
#chronic pain
cont home meds
DVT ppxlovenox
Full code
I have spent at least 57min reviewing chart, test results, communication with consultants and direct patient care
Anticipated Discharge: 24 - 48 hours
Subjective/Interval History
-
Date of Service: January 20, 2025
Objective Data
-
Labs:
Laboratory Results
01/19/25 01/20/25 01/20/25
20:23 06:25 10:00
WBC 7.8 Pending
Hgb 14.3 D Pending
Hct Not Reportable Pending
Plt Count 249 D Pending
Sodium 132 L 132 L Cancelled
Potassium 3.6 3.9 Cancelled
Chloride 102 102 Cancelled
Carbon Dioxide 13 L* 21 L Cancelled
BUN 13 12 Cancelled
Creatinine 0.7 0.7 Cancelled
Glucose 105 H 145 H Cancelled
Calcium 7.4 L 7.0 L Cancelled
Vital Signs:
Vital Signs
Temp Pulse Resp BP Pulse Ox
97.6 F 85 18 159/99 96
01/20/25 07:30 01/20/25 07:30 01/20/25 07:30 01/20/25 07:30 01/20/25 07:30
I&O
01/19/25 01/20/25 01/21/25
06:59 06:59 06:59
Intake Total 480 / 480
Balance 480 / 480
Review of Systems
-
History Source: Patient
All other systems: Reviewed and negative
Physical Exam
-
General: Comfortable
HEENT: Normocephalic
Cardiac: Regular Rhythm
GI: Soft, Nontender, Nondistended and Normal Bowel Sounds
Skin: Warm
Neuro: Awake, Alert, Oriented and AO x 3
Psych: Calm
[2025-01-20 09:21] LABS: Mean Platelet Volume 9.7 fL (7.4-10.4); Platelet Count 219 10^3/uL (130-400)
[2025-01-20 09:22] LABS: Mean Corp Hgb Conc. 38.7 g/dL (33.0-37.0); Mean Corpuscular Hgb 36.9 pg (27.0-31.0); Mean Corpuscular Volume 95.4 fL (80.0-94.0)
[2025-01-20] MEDS: NEURONTIN 600 MG PO ×2 (09:22→21:19)
[2025-01-20] MEDS: CRESTOR 10 MG PO (09:22)
[2025-01-20] MEDS: LR 1000 IV (09:24)
[2025-01-20 10:21] LABS: Triglycerides > 2625 mg/dl (10-149)
[2025-01-20] MEDS: MAGNESIUM SULFATE 50 IV (11:12)
[2025-01-20] MEDS: OMNIPAQUE 50 ML PO (11:13)
[2025-01-20 11:57] LABS: Glucose - Point of Care 149 mg/dl (70-99)
--- NOTE | 2025-01-20 12:17 | CM ---
Pt seen bedside w/ spouse. Initial assessment completed. Admitted for abnormal lab values.
Pt lives w/ spouse and 2 children in [place]- 4 steps to enter the home. Pt is independent w/ ambulating, does not require any devices. Pt is independent w/ ADLs.
Pt denies SNF/VN/PT hx. Pt engaged in OP therapy in the past.
Address, point of contact and insurance verified
PCP: Dr. Bo De La Paz
Pharmacy: [facility]
Plan: Home; no needs likely
[2025-01-20 15:00] VITALS: BP 165/99
[2025-01-20 15:31] LABS: TSH 1.48 uIU/ml (0.47-4.68)
[2025-01-20 17:01] LABS: Glucose - Point of Care 197 mg/dl (70-99)
[2025-01-20 17:04] LABS: Triglycerides > 2625 mg/dl (10-149)
[2025-01-20 17:43] LABS: Vitamin B12 411 pg/ml (239-931)
[2025-01-20] MEDS: GLUCOTROL 10 MG PO (19:16)
[2025-01-20] MEDS: NOVOLOG FLEXPEN-MODERATE RESISTANCE 1 UNITS SC (19:17)
[2025-01-20] MEDS: LOVENOX 40 MG SC (19:17)
[2025-01-20] MEDS: ULTRAM 100 MG PO (21:18)
[2025-01-20 21:42] LABS: Glucose - Point of Care 174 mg/dl (70-99)
[2025-01-20 23:11] VITALS: BP 123/67
[2025-01-21] MEDS: LR 1000 IV
[2025-01-21] MEDS: TYLENOL 650 MG PO (01:46)
[2025-01-21 07:30] VITALS: BP 135/62
[2025-01-21 07:37] LABS: Glucose - Point of Care 201 mg/dl (70-99)
[2025-01-21] MEDS: NOVOLOG FLEXPEN-MODERATE RESISTANCE 3 UNITS SC (08:08)
[2025-01-21] MEDS: NEURONTIN 600 MG PO (08:09)
[2025-01-21] MEDS: CRESTOR 10 MG PO (08:09)
[2025-01-21 08:20] LABS: ALT (SGPT) 21 U/L (0-50); AST (SGOT) 20 U/L (17-59); Albumin 2.9 g/dl (3.5-5.0); Alkaline Phosphatase 53 U/L (38-126); Blood Urea Nitrogen 12 mg/dl (9-20); Calcium 7.5 mg/dl (8.4-10.2); Carbon Dioxide 22 mmol/L (22-30); Chloride 102 mmol/L (98-107); Estimated Creatinine Clearance > 125 ml/min; Glucose 221 mg/dl (70-99); Potassium 3.7 mmol/L (3.5-5.1); Sodium 131 mmol/L (135-145); Total Bilirubin 0.5 mg/dl (0.2-1.3); Total Protein 5.5 g/dl (6.3-8.2); eGFR > 60.00
[2025-01-21 08:42] LABS: Triglycerides > 2625 mg/dl (10-149)
[2025-01-21] MEDS: GLUCOTROL 5 MG PO (09:27)
--- NOTE | 2025-01-21 09:38 | W.PN.HOSP.TC ---
Today's Communication/Plan
-
insulin initiation and D/C
Assessment / Plan
Assessment / Plan
54yo M with PMHx of triglyceridemia, DM, insomnia came with nausea, vomiting for 5 days associated with 10lbs weight loss. On admission found with acidosis. Symptoms rapidly resolved on hydration. No concern for DKA or HHS on admission with normal
BHB and serum osm 301. Labs also significantly impaired by excessive triglyceridemia. Life style changes and diet discussed with patient and (who is a nurse) bedside. Reasonable to initiate insulin upon D/C - DMNP for teaching and
recommendations. Technical Cable Jointer appt already scheduled for 02/14/25. Fluid restriction advised
Was recently started on ceftin for sinus infection
A/P:
#Triglyceridemia
most likely exacrbated by poor DM control - will benefit from lifestyle changes - exercising, low fat DM diet
lipase WNL
extensive N/V resolved next day
low fat diet
follow triglycerides, start fenofibrate when close to [address] abd/pelvis without acute findings
Stop Ceftin - not a choice for sinus infection also no symptoms at this moment
#Mild hyponatremia
2/2 hypertriglyceridemia and
#DM type 2 with neuropathy
Insulin SS, accuchecks, DM diet
Biweekly BMP
#Insomnia
#chronic pain
cont home meds
#cholelithiasis
#Fatty liver disease
#Non-obstructive nephrolithiasis
#Constipation
Miralax
follow as outpatient with PCP
DVT ppx lovenox
Full code
I have spent at least 57min reviewing chart, test results, communication with consultants and direct patient care
Anticipated Discharge: Today
Subjective/Interval History
-
Date of Service: January 21, 2025
Objective Data
-
Labs:
Laboratory Results
01/21/25
06:44
WBC Pending
Hgb Pending
Hct Pending
Plt Count Pending
Sodium 131 L
Potassium 3.7
Chloride 102
Carbon Dioxide 22
BUN 12
Creatinine 0.6 L
Glucose 221 H
Calcium 7.5 L
Total Bilirubin 0.5
AST 20
ALT 21
Alkaline Phosphatase 53
Vital Signs:
Vital Signs
Temp Pulse Resp BP Pulse Ox
97.7 F 84 22 135/62 96
01/21/25 07:30 01/21/25 07:30 01/21/25 07:30 01/21/25 07:30 01/21/25 07:30
I&O
01/20/25 01/21/25 01/22/25
06:59 06:59 06:59
Intake Total 480 / 480 2599 / 2599
Balance 480 / 480 2599 / 2599
Review of Systems
-
History Source: Patient
All other systems: Reviewed and negative
Physical Exam
-
General: No Apparent Distress
HEENT: Normocephalic
GI: Soft, Nontender and Nondistended
Psych: Calm
--- NOTE | 2025-01-21 10:25 | PN.DE.MGMTRT ---
Insulin Management
- -
01/21/2025: Diabetes Management Consult
54 year old male who presented to the ED for evaluation of abnormal outpatient lab work. Pt reported N/V x5 days associated with 10lbs weight loss.
PMH: Severe Triglyceridemia, Hypercholesterolemia, Diabetic peripheral Neuropathy and T2DM. On admission, he was found to be acidotic, but sx rapidly resolved on hydration. No concern for DKA or HHS on admission with normal BHB and serum osm 301.
He was taking Metformin 1000mg BID, Trulicity weekly, Jardiance 25 mg daily and Glipizide 10mg in PM. Routinely follows up with Endocrine for Diabetes care.
Glucose on admission was 242(V). A1C is 9.5%, was 7.4% 02/06/24, Cr 0.6, eGFR >60
Pt awake, alert, resting in bed, offers no complaints, able to discuss diabetes care. Rachel (who's a Nurse) at bedside
Fasting glucose this AM noted to be 221(V), 201 POC. Current diabetes regimen includes Glipizide 10mg Qpm and corrective insulin only.
He has a yonatan [address], upon review of his CGM data analysis, it shows that pt is in range only 25% of the time and 45% of which his glucose is >300.
Had lengthy discussion with pt and about intense life style changes, especially dietary and physical activity changes. Pt does not regularly exercise due to LE joint pains- was recently Started on Gabapentin for neuropathy.
Will start Lantus 15 units @ HS. change glipizide to 5mg BID. Will defer to Hospitalist when to resume Metformin and Jardiance upon discharge.
Will change diet to 1800 billie and order Dietary consult for Nutrition counseling.
Pt will receive insulin instructions later today, will ask Diabetes RN educator to see pt.
states pt has f/u appt with is Propeller Tester on 02/14/25.
Diabetes History
- -
Type of Diabetes: 2 requiring insulin
Pre-Admission Diabetes Regimen
01/21/25
06:44
Creatinine 0.6 L
Lab Results
Hemoglobin A1c 9.5 % (4.0-5.6) H 01/19/25 18:23
Insulin Pump Settings
IP Diabetes Regimen
01/20/25 01/20/25 01/20/25
11:53 16:49 21:41
Glucose
POC Glucose 149 H 197 H 174 H
01/21/25 01/21/25
06:44 07:34
Glucose 221 H
POC Glucose 201 H
Meal type: Lunch
Amount consumed: 100%
Patient Education
[2025-01-21] MEDS: LR IV (10:50)
--- NOTE | 2025-01-21 11:38 | W.DCSUMMARY ---
Discharge Summary
Discharge Data
Date of Admission: 01/20/25
Date of Discharge: 01/21/25
-
Pending Results: No
Hospital Course
54yo M with PMHx of triglyceridemia, DM, insomnia came with nausea, vomiting for 5 days associated with 10lbs weight loss. On admission found with acidosis. Symptoms rapidly resolved on hydration. No concern for DKA or HHS on admission with normal
BHB and serum osm 301. Labs also significantly impaired by excessive triglyceridemia. Life style changes and diet discussed with patient and (who is a nurse) bedside. Reasonable to initiate insulin upon D/C - DMNP for teaching and
recommendations. Arts Education Teacher appt already scheduled for 02/14/25. Fluid restriction advised. Medically stable for D/C, no additional nausea or vomiting in hospital
I have spent at least 57min reviewing chart, test results, communication with consultants and direct patient care
Patient was managed for:
#Triglyceridemia
#Mild hyponatremia
#DM type 2 with neuropathy
#Insomnia
#chronic pain
#cholelithiasis
#Fatty liver disease
#Non-obstructive nephrolithiasis
#Constipation
Discharge Plan
-
Patient Disposition: Home (Routine Discharge)
Discharge Diagnosis/Procedures: Nausea/Vomiting
Diet: Low Fat, Diabetic, Carb Controlled and Restrict fluids to 64 oz
Referrals:
Bo De La Paz DO [Family Provider] -
Prescriptions:
New
glipizide 5 mg Tablet
5 mg PO BID@0800,1700 Qty: 60 0RF
insulin glargine [Lantus Solostar U-100 Insulin] 100 unit/mL (3 mL) insulin pen
15 unit SC QPM Qty: 15 0RF
(DME) pen needle, diabetic [Novofine 32] 32 gauge x 1/4' needle
See Rx Instructions .Route Qty: 100 0RF
Rx Instructions:
As directed
sennosides-docusate sodium 8.6-50 mg Tablet
1 tab PO BID Qty: 60 0RF
Continued
tramadol 50 mg Tablet
100 mg PO HS
acetaminophen [Tylenol Extra Strength] 500 mg Tablet
500 mg PO Q6HPRN PRN (Reason: mild pain)
metformin 1,000 mg Tablet
1,000 mg PO BID
Jardiance 25 mg Tablet
25 mg PO DAILY
gabapentin 600 mg Tablet
600 mg PO BID
rosuvastatin 10 mg Tablet
10 mg PO DAILY
eszopiclone [Lunesta] 3 mg Tablet
3 mg PO HS
icosapent ethyl 1 gram Capsule
2 g PO BID
Discontinued
glipizide 5 mg Tablet
10 mg PO QPM
Trulicity 3 mg/0.5 mL Pen Injector
3 mg SC FR
cyclobenzaprine 10 mg Tablet
10 mg PO HS
cefuroxime axetil 250 mg Tablet
250 mg PO BID
ondansetron [Zofran ODT] 8 mg Tablet,Disintegrating
8 mg PO Q8HPRN PRN (Reason: nausea)
Discharge Orders:
Discharge Patient (As Directed); Ordered 01/21/25
Ordered By: Rashaad Byers
Discharge Date and Time
Print Language: DANISH
[2025-01-21 12:00] LABS: Glucose - Point of Care 161 mg/dl (70-99)
--- NOTE | 2025-01-21 12:15 | CM ---
Pt stable for d/c today w/ private transport
No CM needs at this time
Plan: Home; no needs
[2025-01-21] MEDS: NOVOLOG FLEXPEN-MODERATE RESISTANCE SC (12:41)
[2025-01-21 13:05] VITALS: BP 161/93
[2025-01-21 14:34] LABS: % Basophils 0.6 % (0-2); % Eosinophils 1.9 % (0-6); % Immature Granulocytes 1.5 % (0-0.5); % Lymphocytes 25.6 % (20.5-51.1); % Monocytes 4.7 % (1.7-9.3); % Neutrophils 65.7 % (42.2-75.2); Absolute Eosinophils 0.1 10^3/uL (0-0.7); Absolute Immature Granulocytes 0.1 10^3/uL (0-0.05); Absolute Lymphocytes 1.2 10^3/uL (1.2-3.4); Absolute Monocytes 0.2 10^3/uL (0.1-0.6); Absolute Neutrophils 3.1 10^3/uL (1.4-6.5); Hematocrit 32.1 % (39.0-52.0); Mean Corpuscular Hgb 34.6 pg (27.0-31.0); Mean Corpuscular Volume 94.1 fL (80.0-94.0); Nucleated Red Blood Cells % 2.8 % (-); Platelet Count 361 10^3/uL (130-400); Red Blood Cell Count 3.41 10^6/uL (4.70-6.10); Red Cell Dist. Width 15.2 % (11.5-14.5); White Blood Cell Count 4.7 10^3/uL (4.8-10.8)
[2025-01-21 14:37] LABS: Hemoglobin 11.8 g/dL (13.0-18.0)
[2025-01-21 14:39] LABS: Mean Corp Hgb Conc. 36.8 g/dL (33.0-37.0)
== END 2025-01-21 13:28 | disposition home or self-care (01) | DRG 642 ==
LOC: 4 WEST ACU 07:24
PROVIDERS: Emergency Medicine; ADMITTING PHYSICIAN Internal Medicine; ATTENDING PHYSICIAN Internal Medicine; EMERGENCY PHYSICIAN Emergency Medicine; FAMILY PHYSICIAN Family Medicine
DX: E78.1 Pure hyperglyceridemia (principal); E87.1 Hypo-osmolality and hyponatremia; E11.40 Type 2 diabetes mellitus with diabetic neuropathy, unspecified; G47.00 Insomnia, unspecified; G89.29 Other chronic pain; K80.20 Calculus of gallbladder without cholecystitis without obstruction; K76.0 Fatty (change of) liver, not elsewhere classified; N20.0 Calculus of kidney; K59.00 Constipation, unspecified; D53.9 Nutritional anemia, unspecified; E78.00 Pure hypercholesterolemia, unspecified; G51.0 Bell's palsy; Z79.84 Long term (current) use of oral hypoglycemic drugs; Z86.19 Personal history of other infectious and parasitic diseases
CPT/HCPCS: 74177; 80048; 80053; 81003; 81015; 82010; 82077; 82607; 82805; 82962; 83036; 83605; 83690; 83735; 83930; 83935; 84300; 84443; 84478; 85025; 85027; 96360; 99285; J7030; Q9967

== ENCOUNTER 2025-01-30 08:12 | Observation (INO) | payer OTHER, SELFPAY ==
[2025-01-29 20:10] VITALS: BP 152/95
[2025-01-29 20:14] LABS: Glucose - Point of Care 265 mg/dl (70-99)
[2025-01-29 21:46] VITALS: BMI 28.2
[2025-01-29 21:49] VITALS: BP 136/91
[2025-01-29 22:00] VITALS: BP 116/98
[2025-01-29 22:19] LABS: ALT (SGPT) 30 U/L (0-50); AST (SGOT) 25 U/L (17-59); Alkaline Phosphatase 68 U/L (38-126); Blood Urea Nitrogen 12 mg/dl (9-20); Carbon Dioxide 14 mmol/L (22-30); Chloride 101 mmol/L (98-107); Estimated Creatinine Clearance > 125 ml/min; Glucose 177 mg/dl (70-99); Magnesium 1.7 mg/dl (1.6-2.3); Potassium 4.2 mmol/L (3.5-5.1); Sodium 131 mmol/L (135-145); Total Bilirubin 0.6 mg/dl (0.2-1.3); Total Protein 6.7 g/dl (6.3-8.2); eGFR > 60.00
[2025-01-29 23:09] VITALS: BP 148/96
[2025-01-29 23:16] LABS: Hematocrit 31.8 % (39.0-52.0); Hemoglobin 11.1 g/dL (13.0-18.0); Mean Corp Hgb Conc. 34.9 g/dL (33.0-37.0); Mean Corpuscular Hgb 32.1 pg (27.0-31.0); Mean Corpuscular Volume 91.9 fL (80.0-94.0); Red Blood Cell Count 3.46 10^6/uL (4.70-6.10); Red Cell Dist. Width 13.4 % (11.5-14.5); White Blood Cell Count 4.8 10^3/uL (4.8-10.8)
[2025-01-29 23:18] LABS: Mean Platelet Volume 9.4 fL (7.4-10.4); Platelet Count 405 10^3/uL (130-400)
[2025-01-29 23:23] LABS: Band Neutrophils 1 % (0-3); Eosinophils 2 % (0-6); Lymphocytes 48 % (20-51); Monocytes 7 % (2-9); Platelets Checked Yes; Segmented Neutrophils 42 % (42-75)
[2025-01-29 23:24] LABS: Normal RBC Morphology Yes; Total Cells Counted 100
--- NOTE | 2025-01-29 23:42 | ED.GENMED ---
History of Present Illness
General
Chief Complaint: Abnormal Lab Value
Source: patient and spouse
Exam Limitations: none
Time Seen by Provider: 01/29/25 23:29
Nursing documentation reviewed up to this point in time: agreed with
History of Present Illness
History of Present Illness:
Pleasant 54-year-old male presents to the emergency department with 'abnormal lab values '. Patient was admitted to the hospital several weeks ago for hyponatremia and hyperglycemia. Patient does have a history of diabetes and has been unable to
keep his sugars within a reasonable range. Patient was diagnosed with a sinus infection. Has been on Ceftin up until recently and switched to Levaquin. Patient initially had nausea and vomiting but states he has not had any nausea or vomiting for
the last several days. Just prior to my interview, patient had an episode of vomiting and now has mild abdominal pain. Patient has been compliant with his medications but states that with his admission he was started on new meds in the hospital
and when discharged his family doctor changed his meds back to some of his old meds. He has been compliant with his current medicine regime as well as diet control. Patient denies fever, chills, chest pain, or shortness of breath. He does endorse
typical lower extremity neuropathy but also states that he has mild pain in his legs and well.
Vital signs are stable. Patient not hypoxic
Nursing note reviewed. I agree with nursing documentation up to this point in time.
Home Meds and allergies reviewed.
NUMBER AND COMPLEXITY OF PROBLEMS ADDRESSED AT THE ENCOUNTER
� Chronic conditions affecting care:
� Acute Exacerbation and/or Progression of Chronic Illness:
� Differential Diagnosis includes:
AMOUNT AND/OR COMPLEXITY OF DATA TO BE REVIEWED AND ANALYZED
I performed an independent evaluation of the following and my interpretation is:
EKG:
Pulse Ox: Not Hypoxic
Clinical Informatics Strategist: Sinus Rhythm
CT:
X-rays:
Ultrasound:
Laboratory Studies:
Other:
Review of other/old records: Previous discharge summary from 01/21/2025
Clinical information was obtained by an independent historian:
Prescriptions/Medications Considered but not given:
Further testing considered but not performed:
RISK OF COMPLICATIONS AND/OR MORBIDITY OR MORTALITY OF PATIENT MANAGEMENT
Social determinants of health affecting care: Good Social Support present at the bedside
Discussion with other providers:
Escalation of care including admission/observation vs risk of discharge considered: After being observed in the emergency department, patient is
CRITICAL CARE NOTE:
Total Time (exclusive of procedures):
Update:
Past History
Past History
ED Past Medical History: Hypercholesterolemia and IDDM
ED Past Surgical History: Orthopedic
Social History
Tobacco: Non-smoker
Personal: Single
Review of Systems
Review of Systems
Allergies reviewed?: Yes
Other source history: family
All Other Systems: ROS reviewed and negative except as documented in HPI and ROS
Constitutional: Reports weight loss
EENT: Reports no symptoms
Respiratory: Denies hemoptysis
Cardiac: Denies chest pain
ABD/GI: Reports nausea and vomiting
: Reports no symptoms
Musculoskeletal: Reports no symptoms
Skin: Reports no symptoms
Neurological: Reports no symptoms
Endocrine: Denies polyuria or polydipsia
Hematologic/Lymphatic: Reports no symptoms
Psychiatric: Reports anxiety
Phy Exam
General Physical Exam
General Presentation: well appearing and no apparent distress
General Skin: warm and dry
General Habitus: normal
General Mental: alert
General Hydration: appears well hydrated
ENT Exam
ENT Exam: EOMI, pharynx normal, neck supple and normocephalic
Eye Exam
Eye Exam: PERRL, cornea clear and conjunctiva normal
Cardiovascular Exam
Cardiovascular Exam: regular rate/rhythm, no edema, no murmur and normal peripheral pulses
Pulmonary Exam
Pulmonary Exam: lungs clear, no respiratory distress, no rales, no crackles, no rhonchi, no stridor, no wheezing and no cough
Gastrointestinal Exam
Gastrointestinal Exam: normal bowel sounds, non tender, soft, no organomegaly, no pulsatile mass and non distended
Neurological Exam
Neurological Exam: alert, oriented x3, no motor deficits and speech normal
Musculoskeletal Exam
Musculoskeletal Exam: full ROM and no edema
Skin Exam
Skin Exam: normal color, warm/dry, no rash and no petechia
Psychiatric Exam
Psychiatric Exam: normal mood/affect
Course
Orders/Labs/Results
Orders:
Orders
01/29/25 21:51
CR Chest - 2 Views Urgent
Comment:
Reason For Exam: cough
01/29/25 21:52
Complete Blood Count/With Diff Urgent
Comprehensive Metabolic Panel Urgent
Magnesium Urgent
Manual Differential Urgent
01/29/25 23:42
0.9% Sodium Chloride 500 ml [Nss] 500 ml IV BOLUS
01/29/25 23:46
Venous Blood Gas Urgent
%Oxygen/Room Air: ra
01/29/25 23:47
B-Hydroxybutyrate Urgent
01/30/25 01:27
0.9% Sodium Chloride 1000 ml [Nss] 1,000 ml IV BOLUS
01/30/25 02:49
Comprehensive Metabolic Panel Urgent
01/30/25 03:08
Ondansetron Injectable [Zofran] 4 mg IV NOW STA
01/30/25 03:52
Urinalysis Reflex To Culture Urgent
01/30/25 06:00
Flush (0.9% Sodium Chloride) [Flush (Nss)] See Dose Instructions IV PER PROTOCOL
01/30/25 06:39
NEPHROLOGY CONSULT Routine
Consulting Provider: Jase Jefferson V.
Was physician already notified: No
Reason for consult: persistently low serum bicarb with normal VBG
01/30/25 06:40
Consult Notification Routine
Specialty to Notify: Nephrology
Abnormal Lab Results
01/29/25 01/29/25 01/30/25
20:12 21:52 00:05
RBC 3.46 L 10^6/uL
(4.70-6.10)
Hgb 11.1 L g/dL
(13.0-18.0)
Hct 31.8 L %
(39.0-52.0)
MCH 32.1 H pg
(27.0-31.0)
Plt Count 405 H 10^3/uL
(130-400)
VBG pO2 106 H mmHg
(30-50)
Sodium 131 L mmol/L
(135-145)
Carbon Dioxide 14 L* mmol/L
(22-30)
Creatinine 0.6 L mg/dL
(0.7-1.3)
Glucose 177 H mg/dl
(70-99)
Calcium 8.0 L mg/dl
(8.4-10.2)
Total Protein
Albumin 3.0 L g/dl
(3.5-5.0)
POC Glucose 265 H mg/dl
(70-99)
01/30/25
02:49
RBC
Hgb
Hct
MCH
Plt Count
VBG pO2
Sodium 133 L mmol/L
(135-145)
Carbon Dioxide 14 L* mmol/L
(22-30)
Creatinine 0.6 L mg/dL
(0.7-1.3)
Glucose 146 H mg/dl
(70-99)
Calcium 7.3 L mg/dl
(8.4-10.2)
Total Protein 6.2 L g/dl
(6.3-8.2)
Albumin 3.2 L g/dl
(3.5-5.0)
POC Glucose
01/29/25 21:52
01/30/25 02:49
Vital Signs
Initial and Last Documented VS:
Initial Vital Signs
Temp Pulse Resp BP Pulse Ox
98.5 F 101 16 152/95 98
01/29/25 20:10 01/29/25 20:10 01/29/25 20:10 01/29/25 20:10 01/29/25 20:10
Last Documented Vital Signs
Temp Pulse Resp BP Pulse Ox
98.5 F 88 16 143/88 93
01/29/25 20:10 01/30/25 05:45 01/29/25 20:10 01/30/25 05:00 01/30/25 05:45
*Critical Care Note
Total Time (30-74mins, 75-104mins- exclusive of procedures): Not Applicable
Update Note
Update Note:
Patient has had fatigue, nausea vomiting, and lethargy.
Differential diagnosis is includes dehydration, possible early DKA, obvious vomiting and diarrhea.
Patient to be brought into the hospital for
ED Attending Note
-
Portions of this chart may have been created with voice recognition software.� Occasional wrong word or��sound alike� substitutions may have occurred due to the inherent limitations of voice recognition software.
Discharge Plan
Departure
Patient Disposition: Admit
Date of Disposition: 01/30/25
Time of Disposition: 03:52
Presentation/result/management discussed w/ accepting MD/DO: Hospitalist
Discharge Problem:
Hypocarbia, Nausea & vomiting
Prescriptions:
No Action
tramadol 50 mg Tablet
100 mg PO HS
acetaminophen [Tylenol Extra Strength] 500 mg Tablet
500 mg PO Q6HPRN PRN (Reason: mild pain)
metformin 1,000 mg Tablet
1,000 mg PO BID
Jardiance 25 mg Tablet
25 mg PO DAILY
gabapentin 600 mg Tablet
600 mg PO BID
rosuvastatin 10 mg Tablet
10 mg PO DAILY
eszopiclone [Lunesta] 3 mg Tablet
3 mg PO HS
icosapent ethyl 1 gram Capsule
2 g PO BID
glipizide 5 mg Tablet
5 mg PO BID@0800,1700 Qty: 60 0RF
insulin glargine [Lantus Solostar U-100 Insulin] 100 unit/mL (3 mL) insulin pen
15 unit SC QPM Qty: 15 0RF
(DME) pen needle, diabetic [Novofine 32] 32 gauge x 1/4' needle
See Rx Instructions .Route Qty: 100 0RF
Rx Instructions:
As directed
sennosides-docusate sodium 8.6-50 mg Tablet
1 tab PO BID Qty: 60 0RF
Referrals:
Bo De La Paz DO [Family Provider] -
Interventions
Interventions:
*Risk Screen - Suicide Last Done: 01/29/25 20:13
*Neglect/Abuse Screening Last Done: 01/29/25 20:13
ED- Fall Risk Assessment Last Done: 01/30/25 01:08
Discharge Date and Time
Print Language: ITALIAN
[2025-01-30] VITALS (15 sets, daily range): BP systolic 132–183; BP diastolic 82–100; PULSE 93–104; BMI 24.9
[2025-01-30] MEDS: NSS 500 IV (00:02)
[2025-01-30 00:13] LABS: Venous Blood Gas B.E. -0.5 mmol/L (-4 to +4); Venous Blood Gas HCO3 24.2 mmol/L (22-27); Venous Blood Gas pCO2 39 mmHg (35-48); Venous Blood Gas pO2 106 mmHg (30-50)
[2025-01-30 01:24] LABS: B-Hydroxybutyrate < 0.04 mmol/L (0.02-0.27)
[2025-01-30] MEDS: NSS 1000 IV (01:28)
[2025-01-30] MEDS: ZOFRAN 4 MG IV (03:11)
[2025-01-30 03:35] LABS: ALT (SGPT) 26 U/L (0-50); AST (SGOT) 24 U/L (17-59); Albumin 3.2 g/dl (3.5-5.0); Alkaline Phosphatase 57 U/L (38-126); Blood Urea Nitrogen 11 mg/dl (9-20); Calcium 7.3 mg/dl (8.4-10.2); Carbon Dioxide 14 mmol/L (22-30); Chloride 105 mmol/L (98-107); Estimated Creatinine Clearance > 125 ml/min; Glucose 146 mg/dl (70-99); Potassium 4.1 mmol/L (3.5-5.1); Sodium 133 mmol/L (135-145); Total Bilirubin 0.6 mg/dl (0.2-1.3); Total Protein 6.2 g/dl (6.3-8.2); eGFR > 60.00
--- NOTE | 2025-01-30 07:06 | HPS.HSE ---
Family Physician
-
Family Physician: Bo De La Paz
Chief Complaint
-
abnormal labs
History of Present Illness
This is a 54-year-old male with past medical history significant for diabetes not on insulin, severe hypertriglyceridemia presented to the emergency department for follow-up after having abnormal labs on the outpatient showing a low sodium and low
bicarb.
Patient was recently admitted to the hospital for similar abnormal labs. At the time there was concern for DKA or resolving DKA. Ultimately it was thought to have some mild SIADH. Patient was given IV fluids. His hypoglycemia was corrected with
inpatient insulin and ultimately he was discharged on oral antiglycemic agents. On discharge his sodium is was 131 which was the same as now. The bicarb corrected to 22. Patient had nonspecific symptoms at the time which included nausea vomiting
and some diarrhea. He did follow-up with his PMD who did not want him to be on insulin and preferred for him to be on Trulicity. He also was started to have some MELVA so Jardiance was discontinued. Metformin was also discontinued.
Spouse reports that patient has not taking any of his discharge medications for diabetes in the last 3 days. Even prior to that his glucose has been elevated at home. Spouse states his glucose was in the 300s at home. Patient himself denies any
polyuria and polydipsia. He denies any diarrhea. He denies any vomiting. He said he had some sinus congestion which later developed chest congestion for which she was treated with Ceftin without improvement and ultimately started on Levaquin
about 2 days ago. Does not appear to have any productive cough. He is not short of breath. He does appear somewhat weak.
On arrival here he was afebrile, blood pressure was 143/80 with a pulse of 58. He was satting 94% on room air. Chest x-ray shows no acute infiltrates. CBC was unremarkable. His sodium was 131, potassium 4.2, chloride 101, bicarb 14 with normal
BUN and creatinine of 12 and 0.6. His glucose was 177. Beta-hydroxybutyrate was negative. LFTs within normal limits. Blood gas 7.4/39/24
Medical History
Past Medical History
Past Medical History: Reports Hypercholesterolemia (Severe triglyceridemia), NIDDM and Other (Duodenal ulcer)
Additional Past Medical History:
Hepatitis B no treatment
Benitez's palsy
History of Lyme disease
Past Surgical History: Reports Other (Tarsal tunnel release, history of hand surgeries)
Social History
Tobacco: Non-smoker
Alcohol: None
Drug: None
Personal:
Living: With Family
Employment: Not Employed
Family History
Family History: Not pertinent
Allergies / Home Medications
Allergies reflects when Allergies were last updated in [employer].
Home Medications with original date entered in [employer]
Allergy/Medication List:
Allergies
Allergy/AdvReac Type Severity Reaction Status Date / Time
aspirin Allergy Unknown Verified 01/20/25 17:30
Home Medications
acetaminophen 500 mg tablet (Tylenol Extra Strength) 500 mg PO Q6HPRN PRN mild pain 02/05/24
empagliflozin 25 mg tablet (Jardiance) 25 mg PO DAILY Diabetes 02/05/24
metformin 1,000 mg tablet 1,000 mg PO BID Diabetes 02/05/24
tramadol 50 mg tablet 100 mg PO HS Sleep 02/05/24
eszopiclone 3 mg tablet (Lunesta) 3 mg PO HS 01/19/25
gabapentin 600 mg tablet 600 mg PO BID 01/19/25
icosapent ethyl 1 gram capsule 2 g PO BID 01/19/25
rosuvastatin 10 mg tablet 10 mg PO DAILY 01/19/25
glipizide 5 mg tablet 5 mg PO BID@0800,1700 #60 tabs 01/21/25
insulin glargine 100 unit/mL (3 mL) subcutaneous pen (Lantus Solostar U-100 Insulin) 15 unit (0.15 mL) SC QPM #15 mL 01/21/25
pen needle, diabetic 32 gauge x 1/4' (Novofine 32) #100 ea 01/21/25
sennosides 8.6 mg-docusate sodium 50 mg tablet 1 tab PO BID #60 tabs 01/21/25
Review of Systems
-
History Source: Patient
Constitutional: Reports Fatigue
EENT: Reports No Symptoms
Respiratory: Reports No Symptoms
Cardiac: Reports No Symptoms
Abdomen/GI: Reports Nausea and Vomiting; Denies Diarrhea, Constipated or Pain
: Reports No Symptoms
Musculoskeletal: Reports No Symptoms
Skin: Reports No Symptoms
Neurological: Reports No Symptoms
Endocrine: Reports No Symptoms
Hematologic/Lymphatic: Reports No Symptoms
Psych: Reports No Symptoms
Physical Exam
Vital Signs
Vital Signs
Temp Pulse Resp BP Pulse Ox
98.5 F 88 16 143/88 93
01/29/25 20:10 01/30/25 05:45 01/29/25 20:10 01/30/25 05:00 01/30/25 05:45
Physical Exam
General: Well Developed, No Apparent Distress, Comfortable and Conversant
HEENT: NormoCephalic, Anicteric, Moist mucous membranes and Atraumatic
Respiratory: Clear
Cardiac: S1/S2 and Regular Rhythm
Breast: Deferred by me
GI: Soft, Non Tender, Non Distended and Normal Bowel Sounds
Rectal: Deferred by Provider
Genito-urinary: Deferred by me
Musculoskeletal: No Clubbing, No Cyanosis and No Edema
Skin: Warm
Neuro: AO x 3 and Nonfocal/grossly intact
Hematologic/Lymphatic: No Lymphadenopathy
Psych: Calm
Laboratory Results
-
01/29/25 21:52
01/30/25 02:49
Laboratory Results
Total Bilirubin 0.6 mg/dl (0.2-1.3) 01/30/25 02:49
AST 24 U/L (17-59) 03/02/25 02:49
ALT 26 U/L (0-50) 01/30/25 02:49
Alkaline Phosphatase 57 U/L (38-126) 01/30/25 02:49
Data Reviewed
-
Diagnostic Radiology: Image Personally Visualized and interpreted
Lab Data: Labs Reviewed by me
Old Records: Reviewed
Impression/Plan
-
IMPRESSION:
54 male with diabetes newly initiated on insulin comes in after outpatient lab was abnormal with low sodium and low bicarb. Spouse reports uncontrolled BG at home and discontinuation of insulin for trulicity by PMD. Also had discontinuation of
metformin and jardiance for MELVA. The sodium of 131 was unchanged from his discharge sodium from his last admission 1 week ago. Creatinine is normal at 0.6. Only change from discharge is a bicarb of 14. AG 18. bHB neg < 0.04. Venous blood gas
7.4/ which is incongruent with the serum chemistry or a gap acidosis combined with met alkalosis. Uncertain if the lab discrepancies can be due to severely elevated triglycerides (unknown as above the apparent measurement upper limit of 2600).
No pancreatitis on last admission and no abdominal pain here.
PLAN:
1. Abnormal lab - Uncertain low bicarb with low grade anion gap but no DKA. Denies etoh and ingestions. Tolerating po well so unlikely starvation or ketoacidosis. No nsaids, lactic acidosis, tylenol or other acidosis inducing meds.
- admit to med/surg
- obtain repeat labs with simultaneous measures of chemistry, osmolality, arterial blood gas
- continue hydration with 1/2 NS + 75 bicarb for now
- no significant non-gap acidosis, normal K and hypertensive so unlikely cortisol deficient but will check random levels
- nephrology consult
2. Diabetes - Poorly controlled. No DKA. A1c 9.5, spouse report pre-hospital a1c of 7.2 indicating significant discrepancy. Stopped insulin per PMD but unclear rational (likley for consistency and ease of use)
- give moderate sliding scale and pre-meal insulin for now
- lantus 15 hs
- no MELVA, continue jardiance
- fluids as above
3. Hypertriglyceridemia - > 2650, severe. No pancreatitis Likely familial.
- diet restriction
- no etoh
- continue icosapent and rosuvostatin
- drugs above may not be effective until TG < 1000
- I'm not convinced insulin gtt is going to be clinically beneficial senior care but may clarify some lab abnormalities
- consider endocrine consult
4. Hyponatremia - Mild and stable at 131 compared to prior. Normal tsh on last test. Elevated urine osm suggestive of siadh
- free water restriction
- check random cortisol
- nephrology consult
DVT PPX - lovenox sq
Code status - Full Code
[2025-01-30 08:33] LABS: Urine Albumin 2+ (Neg - Trace); Urine Bilirubin Negative (Negative); Urine Character Clear (Clear); Urine Color Yellow; Urine Glucose 4+ (Negative); Urine Ketone 3+ (Negative); Urine Leukocyte Negative (Negative); Urine Nitrite Negative (Negative); Urine Occult Blood Negative (Negative); Urine Specific Gravity 1.025 (<1.030); Urine Urobilinogen Negative (Neg - 1+)
[2025-01-30 08:34] LABS: B.E. -0.5 mmol/L; HCO3 24.2 mmol/L (21-28); PCO2 39 mmHg (35-48); PO2 84 mmHg (83-108)
[2025-01-30 08:44] LABS: Osmolality Urine 898 mOsm/kg (300-900)
[2025-01-30 09:14] LABS: Urine Bacteria Few (Negative); Urine Red Blood Cell 0-2 /HPF (0-2)
--- NOTE | 2025-01-30 09:56 | W.CON.NEPH ---
Consultation
-
Date/Time Consultation Requested: 01/30/2025 7:30 AM
Date/Time Consultation Performed: 02-22 10:00
Requesting Provider: Dr. Romero
Performing Provider: Dr. Jefferson
Reason for Consultation: Metabolic acidosis
Medical History
-
Chief Complaint: Metabolic acidosis hyponatremia
History of Present Illness:
This is a 54-year-old male with past medical history significant for diabetes on insulin metformin, jardiance, severe hypertriglyceridemia presented to the emergency department for follow-up after having abnormal labs on the outpatient showing a
low sodium and low bicarb. He has a previous recent hospitalization in January with hyponatremia and metabolic acidosis in the setting of nausea and vomiting.
Patient was recently admitted to the hospital for similar abnormal labs. At the time there was concern for DKA or resolving DKA. On discharge his sodium is was 131 which was the same as now. The bicarb corrected to 22. Patient had nonspecific
symptoms at the time which included nausea vomiting and some diarrhea. He did follow-up with his PMD who did not want him to be on insulin and preferred for him to be on Trulicity. He also was started to have some MELVA so Jardiance was
discontinued. Metformin was also discontinued.
Spouse reports that patient has not taking any of his discharge medications for diabetes in the last 3 days. Even prior to that his glucose has been elevated at home. Spouse states his glucose was in the 300s at home. Patient himself denies any
polyuria and polydipsia. He denies any diarrhea. He denies any vomiting. He said he had some sinus congestion which later developed chest congestion for which she was treated with Ceftin without improvement and ultimately started on Levaquin
about 2 days ago. Does not appear to have any productive cough. He is not short of breath. He does appear somewhat weak.
On arrival here he was afebrile, blood pressure was 143/80 with a pulse of 58. He was satting 94% on room air. Chest x-ray shows no acute infiltrates. CBC was unremarkable. His sodium was 131, potassium 4.2, chloride 101, bicarb 14 with normal
BUN and creatinine of 12 and 0.6. His glucose was 177. Beta-hydroxybutyrate was negative. LFTs within normal limits. arterial Blood gas 7.4/. Nephrology was consulted for hyponatremia and metabolic acidosis (AG 16)
Past Medical History
Hypercholesterolemia (Severe triglyceridemia), NIDDM and Other (Duodenal ulcer)
Hepatitis B no treatment
Benitez's palsy
History of Lyme disease
Social History
Tobacco: Non-Smoker
Alcohol: None
Drug: None
Personal:
Family History
Family History: Not Pertinent
Allergies / Home Medications
Allergy/AdvReac Type Severity Reaction Status Date / Time
aspirin Allergy Unknown Verified 01/20/25 17:30
�Medication �Instructions �Recorded �Confirmed �Type
acetaminophen 500 mg tablet 500 mg PO Q6HPRN PRN mild pain 02/05/24 01/19/25 History
(Tylenol Extra Strength)
empagliflozin 25 mg tablet 25 mg PO DAILY Diabetes 02/05/24 01/19/25 History
(Jardiance)
metformin 1,000 mg tablet 1,000 mg PO BID Diabetes 02/05/24 01/19/25 History
tramadol 50 mg tablet 100 mg PO HS Sleep 02/05/24 01/19/25 History
eszopiclone 3 mg tablet (Lunesta) 3 mg PO HS 01/19/25 01/19/25 History
gabapentin 600 mg tablet 600 mg PO BID 01/19/25 01/19/25 History
icosapent ethyl 1 gram capsule 2 g PO BID 01/19/25 01/19/25 History
rosuvastatin 10 mg tablet 10 mg PO DAILY 01/19/25 01/19/25 History
glipizide 5 mg tablet 5 mg PO BID@0800,1700 #60 tabs 01/21/25 Rx
insulin glargine 100 unit/mL (3 15 unit (0.15 mL) SC QPM #15 mL 01/21/25 Rx
mL) subcutaneous pen (Lantus
Solostar U-100 Insulin)
pen needle, diabetic 32 gauge x #100 ea 01/21/25 Rx
1/' (Novofine 32)
sennosides 8.6 mg-docusate sodium 1 tab PO BID #60 tabs 01/21/25 Rx
50 mg tablet
Review of Systems
-
Constitutional: Reports Fatigue
EENT: Reports No Symptoms
Respiratory: Reports No Symptoms
Cardiac: Reports No Symptoms
Abdomen/GI: Reports Nausea and Vomiting; Denies Diarrhea, Constipated or Pain
: Reports No Symptoms
Musculoskeletal: Reports No Symptoms
Skin: Reports No Symptoms
Neurological: Reports No Symptoms
Endocrine: Reports No Symptoms
Hematologic/Lymphatic: Reports No Symptoms
Psych: Reports No Symptom, flat affect
Physical Exam
Vital Signs
Vital Signs
Temp Pulse Resp BP Pulse Ox
98.5 F 88 16 143/88 93
01/29/25 20:10 01/30/25 05:45 01/29/25 20:10 01/30/25 05:00 01/30/25 05:45
Lab Results
01/29/25 21:52
WBC 4.8 10^3/uL (4.8-10.8) 01/29/25 21:52
RBC 3.46 10^6/uL (4.70-6.10) L 01/29/25 21:52
Hgb 11.1 g/dL (13.0-18.0) L 01/29/25 21:52
Hct 31.8 % (39.0-52.0) L 01/29/25 21:52
Plt Count 405 10^3/uL (130-400) H 01/29/25 21:52
eGFR > 60.00 01/30/25 02:49
Albumin 3.2 g/dl (3.5-5.0) L 01/30/25 02:49
Physical Exam
General: AOx3, Nontoxic , NAD,
HEENT: PERRL, EOMI, Anicteric, Conjunctivae Clear, Ear/Nose Intact, Hearing Normal, Oropharynx Clear/Moist, Dentition Intact, Facial Symmetry, Neck Supple, Neck: Trachea Midline, No JVD and No Thyromegaly, no Bruits
Respiratory: Clear to auscultation bilaterally with normal lung exersion
Cardiac: S1/S2 and Regular Rate/Rhythm
Breast: Deferred by me
Abdomen: Soft, Nontender, Nondistended, Normal Bowel Sounds and No Hepatosplenomegaly
Rectal: Deferred by Provider
Genito-urinary: No Costovertebral Tenderness
Extremities: No Clubbing, No Cyanosis and No Edema
Skin: No Rash or open lesions
Neuro: Nonfocal/Grossly Intact, CN II-XII (Intact) and Strength (Musculoskeletal exam 5 out of 5 both upper and lower extremities)
Hematologic/Lymphatic: No Cervical Lymphadenopathy, No Submandibular Lymphadenopathy and No Supraclavicular Lymphadenopathy
Psych: Mood/afflect flat, baseline for this amanda, not very forthcoming with responses
Vascular: plus 2 pedal and radial pulses
Data Reviewed
-
Radiology: Image Personally Visualized and interpreted (Chest x-ray personally reviewed no evidence of congestive heart failure or pneumonic process)
Labs: Labs Reviewed by me (BMP CBC urinalysis)
Old Records: Reviewed (Reviewed old records from date 01/21/2025 sodium bicarbonate 22 sodium 131)
Assessment/Plan
-
Impression:
Anion and non-anion gap metabolic acidosis (16 gap on admission)
Hyponatremia
Diabetes
DM proteinuria
Plan:
Hyponatremia;
-Likely some component of pseudohyponatremia from hypertriglyceridemia
-Urine osm however was greater than 898
-Okay to maintain 40 ounce fluid restriction for now
-follow up serum osm
Gapped and nongapped metabolic acidosis with partial respiratory acidosis (7.40/39/ 84/24) blood gas
-Agree with holding metformin, obtain lactic acid,
-Agree there is significant discordance between calculated CO2 and measured CO2 between blood work and blood gas
-3 plus ketones in urine but beta hydroxybutyrate negative
[2025-01-30 10:21] LABS: Glucose - Point of Care 183 mg/dl (70-99)
[2025-01-30] MEDS: GLUCOTROL 5 MG PO ×2 (10:23→19:20)
[2025-01-30] MEDS: CRESTOR 10 MG PO (10:23)
[2025-01-30] MEDS: SODIUM BICARBONATE 1075 MEQ IV ×2 (10:33→20:26)
[2025-01-30] MEDS: SENOKOT-S PO ×2 (10:44→20:13)
--- NOTE | 2025-01-30 10:53 | W.PN.UPDATE ---
Update Note
Progress Note Update
Non-billable addendum
Admitted 7 AM
Sugars uncontrolled
reports ongoing sinus infection
Assessment:
Acute anion-gap and non-anion gap acidosis with respiratory acidosis
- unclear etiology with discordance of ABG and serum Bicarbs
- follow labs/ABG
- continue bicarbonate IVF
- follow Nephrology recs
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
- continue Icosapent and Statin
- OP Cards/Endocrine f/u
Poorly controlled type 2DM
- currently off Jardiance/Metformin. Recently trialed on Trulicity but stopped due to GI effects and MELVA
- initiate basal/bolus insulin
- continue glipizide
- SSI
- [employer] consulted
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
DVT ppx: Lovenox
Code: Full
[2025-01-30 11:12] LABS: Lactic Acid 0.8 mmol/L (0.7-2.0)
[2025-01-30 11:13] LABS: Blood Urea Nitrogen 10 mg/dl (9-20); Calcium 7.7 mg/dl (8.4-10.2); Carbon Dioxide 17 mmol/L (22-30); Chloride 102 mmol/L (98-107); Estimated Creatinine Clearance > 125 ml/min; Glucose 178 mg/dl (70-99); Potassium 4.2 mmol/L (3.5-5.1); Sodium 132 mmol/L (135-145); eGFR > 60.00
[2025-01-30 11:34] LABS: Cortisol, Random 8.6 ug/dl
[2025-01-30 11:48] LABS: Osmolality Serum 298 mOsm/kg (275-300)
--- NOTE | 2025-01-30 11:54 | PHANOTE ---
med rec note- patient stated that on 01/28/25 Jardiance 25mg daily, Lantus 15units Qhs, and metformin 100mg bid were all stopped
[2025-01-30] MEDS: FARXIGA 10 MG PO (12:24)
[2025-01-30] MEDS: NEURONTIN 600 MG PO ×2 (12:24→20:27)
[2025-01-30 13:44] LABS: Glucose - Point of Care 192 mg/dl (70-99)
[2025-01-30] MEDS: NOVOLOG FLEXPEN-MODERATE RESISTANCE 1 UNITS SC ×2 (14:19→19:07)
[2025-01-30] MEDS: NOVOLOG FLEXPEN 5 UNITS SC ×2 (14:21→19:10)
[2025-01-30] MEDS: UNASYN IV ×2 (15:20→20:27)
[2025-01-30 17:49] LABS: Glucose - Point of Care 184 mg/dl (70-99)
[2025-01-30] MEDS: LOVENOX 40 MG SC (19:10)
[2025-01-30] MEDS: ULTRAM 100 MG PO (21:30)
[2025-01-30] MEDS: LANTUS 0.15 UNITS SC (21:30)
[2025-01-30] MEDS: AMBIEN 10 MG PO (21:30)
[2025-01-30 21:39] LABS: Glucose - Point of Care 189 mg/dl (70-99)
[2025-01-31] MEDS: UNASYN IV ×3 (01:16→14:39)
[2025-01-31 07:28] LABS: Glucose - Point of Care 159 mg/dl (70-99)
[2025-01-31 07:40] VITALS: BP 145/89
[2025-01-31 07:41] VITALS: BP 138/97; BP 142/91; BP 145/89; PULSE 89; PULSE 94; PULSE 98
--- NOTE | 2025-01-31 08:15 | PN.DE.MGMTRT ---
Insulin Management
- -
01/31/2025: Diabetes Management Consult
54 year old male with PMH: Severe Triglyceridemia, Hypercholesterolemia, Diabetic peripheral Neuropathy and T2DM.
Pt re-admitted after recent hospitalization for Hyponatremia,Hypertriglyceridemia and uncontrolled diabetes. Glucose on admission was 177, not in DKA.
Pt has not taken insulin since discharge from the hospital. Pt and report that his blood sugars never imprved to less than 200 since leaving the hospital. They continue to say that pt's PCP asked him to stop taking insulin because he felt that
pt's A1C that was obtained here during his recent hospitalization was incorrect. He uses a yonatan 2 for glucose monitoring at home. Explained to pt and that his A1C of 9.5% is consistent with the glucose levels that he has been getting at home
and that his CGM also indicates glucose levels >200 with 25% of the time in range and 55 % of time out of range. Cr 0.6, eGFR >60
Pt awake, alert, resting in bed, offers no complaints, able to discuss diabetes care. Rachel (who's a Nurse) at bedside
Current diabetes regimen includes Lantus 15 uits @ HS, NovoLog 5 units AC and Glipizide 5mg BID with low corrective AC.
3/2 premeal range 183 to 192, requiring 1 units of corrective insulin with meals. Fasting glucose this AM 141(V), 159 POC.
Will increase AC NovoLog to 6 units. Resume Farxiga 10mg daily. Cont Lantus 15 units @ HS. STOP Glipizide, now that he is on AC NovoLog
Had lengthy discussion with pt and about intense life style changes, especially dietary and physical activity changes. Pt does not regularly exercise due to LE joint pains- was recently Started on Gabapentin for neuropathy.
Pt received insulin instructions during his recent hospitalization. states pt has f/u appt with is [facility] at [facility] on 02/14/25 and that she is going to be administering his AC/HS insulin at home.
Diabetes History
- -
Type of Diabetes: 2 requiring insulin
Pre-Admission Diabetes Regimen
01/30/25
10:37
Creatinine 0.5 L
Insulin Pump Settings
IP Diabetes Regimen
01/30/25 01/30/25 01/30/25
10:10 10:37 13:43
Glucose 178 H
POC Glucose 183 H 192 H
01/30/25 01/30/25 01/31/25
17:47 21:28 07:17
Glucose
POC Glucose 184 H 189 H 159 H
Patient Education
[2025-01-31] MEDS: SODIUM BICARBONATE 1075 MEQ IV (08:38)
[2025-01-31 08:40] LABS: Blood Urea Nitrogen 9 mg/dl (9-20); Calcium 8.1 mg/dl (8.4-10.2); Carbon Dioxide 24 mmol/L (22-30); Chloride 100 mmol/L (98-107); Estimated Creatinine Clearance 119 ml/min; Glucose 141 mg/dl (70-99); Potassium 4.2 mmol/L (3.5-5.1); Sodium 133 mmol/L (135-145); eGFR > 60.00
[2025-01-31] MEDS: NEURONTIN 600 MG PO (08:42)
[2025-01-31] MEDS: CRESTOR 10 MG PO (08:43)
[2025-01-31] MEDS: SENOKOT-S 1 TABLET PO (08:43)
[2025-01-31] MEDS: GLUCOTROL 5 MG PO (08:43)
[2025-01-31 09:03] LABS: Hematocrit 36.8 % (39.0-52.0); Hemoglobin 13.1 g/dL (13.0-18.0); Mean Corp Hgb Conc. 35.6 g/dL (33.0-37.0); Mean Corpuscular Hgb 32.6 pg (27.0-31.0); Mean Corpuscular Volume 91.5 fL (80.0-94.0); Mean Platelet Volume 9.4 fL (7.4-10.4); Platelet Count 286 10^3/uL (130-400); Red Blood Cell Count 4.02 10^6/uL (4.70-6.10); Red Cell Dist. Width 13.5 % (11.5-14.5); White Blood Cell Count 6.4 10^3/uL (4.8-10.8)
[2025-01-31] MEDS: NOVOLOG FLEXPEN-MODERATE RESISTANCE 1 UNITS SC (09:36)
[2025-01-31] MEDS: FARXIGA 10 MG PO (09:37)
[2025-01-31] MEDS: NOVOLOG FLEXPEN SC (09:42)
[2025-01-31 11:32] LABS: Glucose - Point of Care 136 mg/dl (70-99)
--- NOTE | 2025-01-31 12:01 | W.PN.NEPH.PH ---
Today's Communication / Plan
-
IV fluids
Assessment/Plan
-
Impression:
Anion and non-anion gap metabolic acidosis (16 gap on admission)
Hyponatremia
Diabetes
DM proteinuria
Plan:
Hyponatremia, pseudohyponatremia from hypertriglyceridemia
Follow BMP
Acidosis resolved
IV fluids
-
-
Date of Service: January 31, 2025
CC / HPI / ROS
-
Chief Complaint:
Metabolic acidosis
History of Present Illness:
Sodium stable at 133
Acidosis resolved
BP stable high
Review of Systems:
No more nausea
No chest pain or shortness of breath
Labs
-
Labs:
WBC 6.4 10^3/uL (4.8-10.8) 01/31/25 07:43
RBC 4.02 10^6/uL (4.70-6.10) L 01/31/25 07:43
Hgb 13.1 g/dL (13.0-18.0) 01/31/25 07:43
Hct 36.8 % (39.0-52.0) L 01/31/25 07:43
Plt Count 286 10^3/uL (130-400) D 01/31/25 07:43
Sodium 133 mmol/L (135-145) L 01/31/25 07:43
Potassium 4.2 mmol/L (3.5-5.1) 01/31/25 07:43
Chloride 100 mmol/L (98-107) 01/31/25 07:43
Carbon Dioxide 24 mmol/L (22-30) 01/31/25 07:43
BUN 9 mg/dl (9-20) 01/31/25 07:43
Creatinine 0.7 mg/dL (0.7-1.3) 01/31/25 07:43
eGFR > 60.00 01/31/25 07:43
Glucose 141 mg/dl (70-99) H 01/31/25 07:43
Calcium 8.1 mg/dl (8.4-10.2) L 01/31/25 07:43
Albumin 3.2 g/dl (3.5-5.0) L 01/30/25 02:49
Physical Exam
-
Vital Signs:
Vital Signs
Temp Pulse Resp BP Pulse Ox
98.0 F 89 17 145/89 96
01/31/25 07:40 01/31/25 07:40 01/31/25 07:40 01/31/25 07:40 01/31/25 08:45
Cardiovascular:: Regular rate and rhythm
Respiratory:: Bilateral: CTA
Lung Excursion:: Normal
Abdomen:: Nontender and Soft
Bowel Sounds:: Normal
Extremity Edema:: None: Bilateral:
[2025-01-31] MEDS: NOVOLOG FLEXPEN-MODERATE RESISTANCE SC (13:15)
[2025-01-31 13:23] LABS: Glucose - Point of Care 103 mg/dl (70-99)
--- NOTE | 2025-01-31 14:48 | W.PN.HOSP.TC ---
Addendum entered and electronically signed by Martha Tarango MD 01/31/25 14:51:
Acute sinusitis - dc on Augmentin x 9 further days
Original Note:
Today's Communication/Plan
-
dc home
Assessment / Plan
Assessment / Plan
Assessment:
Acute anion-gap and non-anion gap acidosis with respiratory acidosis
- unclear etiology with discordance of ABG and serum Bicarbs
- labs improved with bicarbonate IVF
- appreciate Nephrology
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
- continue Icosapent and Statin
- OP Cards/Endocrine f/u
Poorly controlled type 2DM
- currently off Jardiance/Metformin. Recently trialed on Trulicity but stopped due to GI effects and MELVA
- continue basal/bolus insulin + Jardiance. Glipizide stopped
- SSI
- INFORMATICIST consulted
DVT ppx: Lovenox
Code: Full
More than 30 minutes spent in discharge including
Final examination of the patient
Summarizing hospital stay
Instructions for continuing care to all relevant caregivers
Preparation of discharge records, prescriptions, and referral forms
Total time spent (in minutes): 41
Anticipated Discharge: Today
Subjective/Interval History
-
Date of Service: January 31, 2025
feels well no complaints
Objective Data
-
Labs:
Laboratory Results
01/31/25
07:43
WBC 6.4
Hgb 13.1
Hct 36.8 L
Plt Count 286 D
Sodium 133 L
Potassium 4.2
Chloride 100
Carbon Dioxide 24
BUN 9
Creatinine 0.7
Glucose 141 H
Calcium 8.1 L
Vital Signs:
Vital Signs
Temp Pulse Resp BP Pulse Ox
98.0 F 89 17 145/89 96
01/31/25 07:40 01/31/25 07:40 01/31/25 07:40 01/31/25 07:40 01/31/25 08:45
I&O
01/30/25 01/31/25 02/01/25
06:59 06:59 06:59
Intake Total 1959
Balance 1959
Physical Exam
-
General: No Apparent Distress
HEENT: Normocephalic and Atraumatic
Respiratory: Negative Wheezes
Cardiac: Regular Rhythm and S1/S2
GI: Soft and Nontender
Genito-urinary: No Costovertebral Tender
Neuro: AO x 3
Hematologic / Lymphatic: No Lymphadenopathy
Psych: Calm
Data Reviewed
-
Total Time Spent with Patient (in minutes): 41
Labs: Labs Reviewed by me
--- NOTE | 2025-01-31 15:03 | W.DS.TRANS ---
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
-
Discharge Instructions:
Discharge Diagnosis/Procedures uncontrolled Diabetes, acute sinusitis
Diet Diabetic, Carb Controlled
Activity As tolerated
Instructions:
Stand-Alone Forms:
Changes to Home Medications: No
Discharge Medications:
DC Medications w/original date entered in [facility]
acetaminophen 500 mg tablet (Tylenol Extra Strength) 500 mg PO Q6HPRN PRN mild pain 02/05/24
tramadol 50 mg tablet 100 mg PO HS Sleep 02/05/24
eszopiclone 3 mg tablet (Lunesta) 3 mg PO HS 01/19/25
gabapentin 600 mg tablet 600 mg PO BID 01/19/25
icosapent ethyl 1 gram capsule 2 g PO BID 01/19/25
rosuvastatin 10 mg tablet 10 mg PO DAILY 01/19/25
cyclobenzaprine 10 mg tablet 10 mg PO DAILYPRN PRN spasms 01/30/25
ondansetron 8 mg disintegrating tablet 8 mg PO Q8HPRN PRN nausea 01/30/25
amoxicillin 875 mg-potassium clavulanate 125 mg tablet 1 tab PO BID #17 tabs 01/31/25
dapagliflozin propanediol 10 mg tablet 10 mg PO DAILY #30 tabs 01/31/25
insulin aspart U-100 100 unit/mL (3 mL) subcutaneous pen 6 unit (0.06 mL) SC AC #15 mL 01/31/25
insulin glargine 100 unit/mL (3 mL) subcutaneous pen (Lantus Solostar U-100 Insulin) 15 unit (0.15 mL) SC HS #15 mL 01/31/25
pen needle, diabetic 29 gauge x 1/2' (Pen Needle) #100 ea 01/31/25
Home Medication Changes
Pending Results: No
Total time spent discharging patient (in min): 41
[2025-01-31 15:29] VITALS: BP 137/78
--- NOTE | 2025-01-31 15:42 | CM ---
CM met with patient in room. Patient independent with needs. Patient has a PCP and medication coverage. CM provided patient with [facility] coupon.
PLAN: home no needs.
== END 2025-01-31 16:25 | disposition home or self-care (01) ==
LOC: 1 ACUTE 08:12
PROVIDERS: Student in an Organized Health Care Education/Training Program; ADMITTING PHYSICIAN Internal Medicine; ATTENDING PHYSICIAN Internal Medicine; CONSULT PHYSICIAN Specialist; EMERGENCY PHYSICIAN Student in an Organized Health Care Education/Training Program; FAMILY PHYSICIAN Family Medicine
DX: E11.65 Type 2 diabetes mellitus with hyperglycemia (principal); J01.90 Acute sinusitis, unspecified; R79.89 Other specified abnormal findings of blood chemistry; R10.9 Unspecified abdominal pain; R11.2 Nausea with vomiting, unspecified; E78.2 Mixed hyperlipidemia; R19.7 Diarrhea, unspecified; N17.9 Acute kidney failure, unspecified; E87.4 Mixed disorder of acid-base balance; E87.8 Other disorders of electrolyte and fluid balance, not elsewhere classified; R80.9 Proteinuria, unspecified; Z79.4 Long term (current) use of insulin; Z79.84 Long term (current) use of oral hypoglycemic drugs; Z88.6 Allergy status to analgesic agent
CPT/HCPCS: 36600; 71046; 80048; 80053; 81003; 81015; 82010; 82533; 82805; 82962; 83605; 83735; 83930; 83935; 85025; 85027; 96361; 96365; 96375; 99285; G0378; J7030

== ENCOUNTER 2025-02-18 18:13 | Emergency (ER) | payer OTHER, SELFPAY ==
[2025-02-18 18:20] VITALS: BP 147/97
[2025-02-18 19:00] VITALS: BP 150/82; BMI 25.9
[2025-02-18 19:45] LABS: ALT (SGPT) 29 U/L (0-50); AST (SGOT) 31 U/L (17-59); Albumin 4.3 g/dl (3.5-5.0); Alkaline Phosphatase 51 U/L (38-126); Blood Urea Nitrogen 10 mg/dl (9-20); Calcium 8.8 mg/dl (8.4-10.2); Carbon Dioxide 19 mmol/L (22-30); Chloride 97 mmol/L (98-107); Estimated Creatinine Clearance 115 ml/min; Glucose 285 mg/dl (70-99); Potassium 4.1 mmol/L (3.5-5.1); Sodium 132 mmol/L (135-145); Total Bilirubin 0.8 mg/dl (0.2-1.3); Total Protein 7.5 g/dl (6.3-8.2); eGFR > 60.00
[2025-02-18 20:00] VITALS: BP 149/88
[2025-02-18 20:06] LABS: Hematocrit 39.5 % (39.0-52.0); Mean Corp Hgb Conc. 35.4 g/dL (33.0-37.0); Mean Corpuscular Hgb 32.6 pg (27.0-31.0); Mean Corpuscular Volume 92.1 fL (80.0-94.0); Platelet Count 208 10^3/uL (130-400); Red Blood Cell Count 4.21 10^6/uL (4.70-6.10); Red Cell Dist. Width 14.6 % (11.5-14.5); White Blood Cell Count 5.2 10^3/uL (4.8-10.8)
[2025-02-18 20:19] LABS: % Basophils 0.4 % (0-2); % Eosinophils 1.9 % (0-6); % Immature Granulocytes 0.2 % (0-0.5); % Lymphocytes 39.2 % (20.5-51.1); % Monocytes 5.8 % (1.7-9.3); % Neutrophils 52.5 % (42.2-75.2); Absolute Eosinophils 0.1 10^3/uL (0-0.7); Absolute Monocytes 0.3 10^3/uL (0.1-0.6); Absolute Neutrophils 2.7 10^3/uL (1.4-6.5); Nucleated Red Blood Cells % 0 % (-)
[2025-02-18 20:22] LABS: Triglycerides > 2625 mg/dl (10-149)
[2025-02-18 20:33] LABS: Creatine Phosphokinase 109 U/L (55-170)
[2025-02-18 21:07] VITALS: BP 155/97
--- NOTE | 2025-02-18 22:04 | ED.GENMED ---
History of Present Illness
General
Chief Complaint: Numbness
Source: patient and spouse
Time Seen by Provider: 02/18/25 18:28
History of Present Illness
History of Present Illness:
54-year-old male who presents with feeling like his face on the left feels numb. The patient states that symptoms started this morning. He patient reports a history of difficult to control blood sugars in the history of high triglycerides. He
follows with endocrinology. Patient also has had chronic pain in his legs that they are sure if it is related to a neuropathy or another cause. He has been following with pain management. The patient does admit that he had Benitez's palsy in the
past related to Lyme disease but that had resolved. Spouse states that they had real difficulty controlling his blood sugar sometimes 350 and sometimes at 125. He again has been followed with endocrinology. Patient denies headache. No rash.
Also states when he was drinking he felt like he was drooling.
Past History
Past History
ED Past Medical History: Hypercholesterolemia, IDDM and Other (High triglycerides (greater than 12,000), Benitez's palsy, chronic leg pain question neuropathy. Adopted (unknown family history))
ED Past Surgical History: Orthopedic
Social History
Tobacco: Non-smoker
Personal: Single
Phy Exam
Physical Exam
Physical Exam:
CONSTITUTIONAL Patient alert and oriented to person, place and time. Well-appearing. Vital signs reviewed.
HEAD atraumatic, normocephalic.
EYES eyelids normal to inspection, Extraocular muscles intact, Conjunctiva normal, Sclera normal.
NECK normal range of motion, Trachea midline, no jugular venous distention.
RESPIRATORY CHEST No respiratory distress noted, Chest expansion equal, Bilateral breath sounds clear.
CARDIOVASCULAR regular rate and rhythm, Heart sounds normal.
ABDOMEN abdomen nontender, Bowel sounds normal. No distention.
BACK normal inspection, no obvious deformities
UPPER EXTREMITY range of motion normal, Motor strength normal, no cyanosis, no edema.
LOWER EXTREMITY range of motion normal, Motor strength normal, no cyanosis, no edema.
NEURO Speech normal, No focal motor deficits, Jerome coma scale 15, Memory normal, right 7th nerve palsy. Normal [id number]. No pronator drift. Normal gross sensation to palpation at the face
SKIN skin warm, dry, and normal in color.
Course
Orders/Labs/Results
Orders:
Orders
02/18/25 19:02
Lyme Progressive Urgent
02/18/25 19:03
CPK [Creatine Phosphokinase] Urgent
Complete Blood Count/With Diff Urgent
Comprehensive Metabolic Panel Urgent
Triglycerides Urgent
02/18/25 20:41
CT Head W/o Iv Contrast Urgent
Comment:
Reason For Exam: R bells, L facial numbness
Abnormal Lab Results
02/18/25
19:03
RBC 4.21 L 10^6/uL
(4.70-6.10)
MCH 32.6 H pg
(27.0-31.0)
RDW 14.6 H %
(11.5-14.5)
Sodium 132 L mmol/L
(135-145)
Chloride 97 L mmol/L
(98-107)
Carbon Dioxide 19 L mmol/L
(22-30)
Glucose 285 H mg/dl
(70-99)
Triglycerides > 2625 H mg/dl
(10-149)
02/18/25 19:03
02/18/25 19:03
Vital Signs
Initial and Last Documented VS:
Initial Vital Signs
Temp Pulse Resp BP Pulse Ox
98.7 F 78 20 147/97 97
02/18/25 18:20 02/18/25 18:20 02/18/25 18:20 02/18/25 18:20 02/18/25 18:20
Last Documented Vital Signs
Temp Pulse Resp BP Pulse Ox
98.7 F 78 20 155/97 96
02/18/25 18:20 02/18/25 18:20 02/18/25 18:20 02/18/25 21:07 02/18/25 20:31
MDM/Problems Addressed
Differential Diagnosis Includes:
CVA, Benitez's palsy
MDM/Problems Addressed:
Benitez's palsy, hypertriglyceridemia
*Radiology
Radiology exam reviewed: radiology read reviewed
*Pulse Oximetry
Patient hypoxic: no
*Beverage Distiller Interpretation
Rate: normal
Interpretation: normal
Rhythm: sinus
*Critical Care Note
Total Time (30-74mins, 75-104mins- exclusive of procedures): Not Applicable
Data Reviewed
Source: patient and spouse
Prescriptions/Medications Considered But Not Given:
Considered steroids but in the face of his uncontrolled diabetes, hold off
Patient Management
Discussion with other providers: Platform Loader (Case discussed with neurology)
Escalation/DeEscalation of care consider admission/obs:
Patient reports subjective left facial numbness. Nothing objective. Clearly has a right facial 7th nerve palsy. Nonfocal motor exam otherwise. Hold off on steroids in light of his brittle diabetes. Unclear how I can explain the left sided
complaint of numbness. Case discussed with neurology does not feel strongly that he warrants further stroke workup. CT is negative. Patient is allergic to aspirin. I did recommend close outpatient follow-up. Did offer admission for MRI but
patient would like to obtain as an outpatient. I do not think this is unreasonable. Unlikely to have any brainstem problem given the lack of any other symptoms
ED Attending Note
-
Portions of this chart may have been created with voice recognition software.� Occasional wrong word or��sound alike� substitutions may have occurred due to the inherent limitations of voice recognition software.
Discharge Plan
Departure
Patient Disposition: Home (Routine Discharge)
Date of Disposition: 02/18/25
Time of Disposition: 22:04
Patient with high blood pressure during this ER visit?: Yes
Discharge Problem:
Benitez's palsy, Familial hypertriglyceridemia
Instructions: Benitez's Palsy (DC), BLOOD PRESSURE
Prescriptions:
No Action
tramadol 50 mg Tablet
100 mg PO HS
eszopiclone [Lunesta] 3 mg Tablet
3 mg PO HS
(DME) pen needle, diabetic [Pen Needle] 29 gauge x 1/2' needle
See Rx Instructions .Route Qty: 100 0RF
Rx Instructions:
As directed
tramadol 50 mg Tablet
50 mg PO DAILY
rosuvastatin [Crestor] 10 mg Tablet
10 mg PO DAILY
cholecalciferol (vitamin D3) [Vitamin D3] 50 mcg (2,000 unit) Capsule
50 mcg PO DAILY
icosapent ethyl [Vascepa] 1 gram Capsule
2 g PO BID
dapagliflozin propanediol [Farxiga] 10 mg Tablet
10 mg PO DAILY
Trulicity 3 mg/0.5 mL Pen Injector
3 mg SC QWEEK
Patient Comments:
on friday
Neurontin
900 mg PO BID
insulin aspart U-100 [Novolog FlexPen U-100 Insulin] 100 unit/mL (3 mL) insulin pen
4 unit SC AC
Rx Instructions:
humalog - 4units with small meal (<35 carbs)
6 units with med meal (35-55 carbs)
8 units with large meal (>55 carbs)
+ sliding scale coverage with meals based on blood sugar
insulin glargine [Lantus Solostar U-100 Insulin] 100 unit/mL (3 mL) insulin pen
18 unit SC HS
Referrals:
Bo De La Paz DO [Family Provider] -
Activity Restrictions/Additional Instructions:
Please see your doctor to arrange an outpatient MRI of your brain. Please also see endocrinology for follow-up. Return immediately for any kind of speech changes, motor weakness, difficulty walking, feeling off balance, or any concerns at all.
Please see your doctor in the next 3 to 5 days. We did consider steroids but given your blood sugar difficulties we will hold off on steroids at this time. Please use lubricating eyedrops as discussed and see ophthalmology in the next 2 weeks if
symptoms persist. Please use a cool rag on your eyelid to keep your lid close while sleeping.
Interventions
Interventions:
*Risk Screen - Suicide Last Done: 02/18/25 18:31
*General Assessment Last Done: 02/18/25 19:00
*Neglect/Abuse Screening Last Done: 02/18/25 18:31
*ED- Fall Risk Assessment Last Done: 02/18/25 19:00
*ED COVID-19 Vaccine History Last Done: 02/18/25 18:31
ED- Neurological Assessment Last Done: 02/18/25 19:00
Discharge Date and Time
Print Language: [place]IZ[place]
[2025-02-21 13:31] LABS: Lyme Antibody Screen, EIA Negative (Negative)
== END 2025-02-18 22:18 | disposition home or self-care (01) ==
LOC: EMR 18:13
PROVIDERS: EMERGENCY PHYSICIAN Emergency Medicine; FAMILY PHYSICIAN Family Medicine
DX: G51.0 Bell's palsy (principal); E78.2 Mixed hyperlipidemia; E11.9 Type 2 diabetes mellitus without complications; G89.29 Other chronic pain; Z79.4 Long term (current) use of insulin
CPT/HCPCS: 99284; 70450; 80053; 82550; 84478; 85025; 86618

== ENCOUNTER 2025-02-20 19:01 | Emergency (ER) | payer OTHER, SELFPAY ==
[2025-02-20 19:23] VITALS: BP 136/97
--- NOTE | 2025-02-20 20:52 | ED.GENMED ---
History of Present Illness
<ALANA Santos - Last Filed: 02/21/25 00:06>
General
Chief Complaint: Facial Problem
Source: patient
Exam Limitations: none
Time Seen by Provider: 02/20/25 20:32
Nursing documentation reviewed up to this point in time: agreed with
History of Present Illness
History of Present Illness:
Patient is a 54-year-old male that presents back to the ER for evaluation. Patient has a history of hyperlipidemia with very high and uncontrolled triglycerides, diabetes insulin-dependent for the past 4 weeks presents to the ER for evaluation.
Patient was seen here 2 nights ago and diagnosed with Benitez's palsy. 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
Yesterday and today patient has had right sided posterior head pain which she he does not describe this as a headache. In addition he also has burning in his right ear. was concerned about these symptoms which is what prompted patient to come
to the ER
In addition patient has bilateral calf and knee pain however this is not new. Patient is on Crestor and Vascepa.
Currently this is managed by [facility] but is in the process of getting him at [facility] to better manage his triglycerides and high cholesterol
Because of his calf pain he is in pain management and takes tramadol 4 times a day.
Past History
<ALANA Santos - Last Filed: 02/21/25 00:06>
Past History
ED Past Medical History: Hypercholesterolemia, IDDM and Other (High triglycerides (greater than 12,000), Benitez's palsy, chronic leg pain question neuropathy. Adopted (unknown family history))
ED Past Surgical History: Orthopedic
Social History
Tobacco: Non-smoker
Personal: Single
Review of Systems
<ALANA Santos - Last Filed: 02/21/25 00:06>
Review of Systems
Allergies reviewed?: Yes
Other source history: family
All Other Systems: ROS reviewed and negative except as documented in HPI and ROS
Constitutional: Reports no symptoms
EENT: Reports other (Burning in right ear)
Respiratory: Reports no symptoms
Cardiac: Reports no symptoms
ABD/GI: Reports no symptoms
Musculoskeletal: Reports other (Months of bilateral calf pain knee pain )
Skin: Reports no symptoms
Neurological: Reports other (Patient denies headache but has pain to the right posterior head); Denies dizzy
Psychiatric: Reports no symptoms
Phy Exam
<ALANA Santos - Last Filed: 02/21/25 00:06>
General Physical Exam
General Presentation: no apparent distress
General age: appears stated age
General Skin: warm and dry
General Habitus: normal
General Mental: alert
General Hydration: appears well hydrated
Eye Exam
Eye Exam: PERRL and EOMI
Eye Exam General: PERRL: bilateral and EOM intact: bilateral
Pupil Exam: Bilateral: round and reactive
Cardiovascular Exam
Cardiovascular Exam: regular rate/rhythm, no murmur and normal peripheral pulses
Pulmonary Exam
Pulmonary Exam: lungs clear and no respiratory distress
Neurological Exam
Neurological Exam: alert, oriented x3 and other (Patient unable to blink eye on right side, right sided mouth droop )
Musculoskeletal Exam
Musculoskeletal Exam: full ROM
Skin Exam
Skin Exam: normal color and warm/dry
Psychiatric Exam
Psychiatric Exam: normal mood/affect
Course
<LAANA Santos - Last Filed: 02/21/25 00:06>
Orders/Labs/Results
Orders:
Orders
02/20/25 21:27
IV Insert/Care/Rem.- Treatment PRN
02/20/25 21:30
CPK [Creatine Phosphokinase] Urgent
Complete Blood Count/With Diff Urgent
Comprehensive Metabolic Panel Urgent
02/20/25 23:29
Prednisone [Deltasone] 60 mg PO NOW STA
02/20/25 23:30
Valacyclovir HCl [Valtrex] 1,000 mg PO NOW STA
Abnormal Lab Results
02/20/25
21:30
RBC 4.19 L 10^6/uL
(4.70-6.10)
Hct 38.6 L %
(39.0-52.0)
MCH 32.4 H pg
(27.0-31.0)
RDW 14.7 H %
(11.5-14.5)
Glucose 152 H mg/dl
(70-99)
02/20/25 21:30
02/20/25 21:30
Vital Signs
Initial and Last Documented VS:
Initial Vital Signs
Temp Pulse Resp BP Pulse Ox
99.4 F 105 20 136/97 98
02/20/25 19:23 02/20/25 19:23 02/20/25 19:23 02/20/25 19:23 02/20/25 19:23
Last Documented Vital Signs
Temp Pulse Resp BP Pulse Ox
99.4 F 96 21 147/90 95
02/20/25 19:23 02/21/25 00:04 02/21/25 00:04 02/21/25 00:04 02/21/25 00:04
Freight Broker consulted with Physician
Freight Broker consulted with physician?: Yes
Name of Physician Consulted: Michael
<Thor Apodaca DO - Last Filed: 02/21/25 07:10>
Orders/Labs/Results
Orders:
Orders
02/20/25 21:27
IV Insert/Care/Rem.- Treatment PRN
02/20/25 21:30
CPK [Creatine Phosphokinase] Urgent
Complete Blood Count/With Diff Urgent
Comprehensive Metabolic Panel Urgent
02/20/25 23:29
Prednisone [Deltasone] 60 mg PO NOW STA
02/20/25 23:30
Valacyclovir HCl [Valtrex] 1,000 mg PO NOW STA
Abnormal Lab Results
02/20/25
21:30
RBC 4.19 L 10^6/uL
(4.70-6.10)
Hct 38.6 L %
(39.0-52.0)
MCH 32.4 H pg
(27.0-31.0)
RDW 14.7 H %
(11.5-14.5)
Glucose 152 H mg/dl
(70-99)
02/20/25 21:30
02/20/25 21:30
Vital Signs
Initial and Last Documented VS:
Initial Vital Signs
Temp Pulse Resp BP Pulse Ox
99.4 F 105 20 136/97 98
02/20/25 19:23 02/20/25 19:23 02/20/25 19:23 02/20/25 19:23 02/20/25 19:23
Last Documented Vital Signs
Temp Pulse Resp BP Pulse Ox
99.4 F 96 21 147/90 95
02/20/25 19:23 02/21/25 00:04 02/21/25 00:04 02/21/25 00:04 02/21/25 00:04
<ALANA Santos - Last Filed: 02/21/25 00:06>
MDM/Problems Addressed
Differential Diagnosis Includes:
Not limited to symptoms consistent with Benitez's palsy
MDM/Problems Addressed:
Patient is a diabetic history of hypercholesteremia and high triglycerides poorly controlled presented for a reevaluation. Patient was seen here several days ago diagnosed with Benitez's palsy on the right side however now complains of pain to the
right posterior head and burning sensation in the ear. He is in no acute distress he has no other neurological deficits. Regarding this complaint likely exacerbation Benitez's palsy. because of his diabetes he was not given steroids previously
however with current symptoms likely from Benitez's palsy as discussed ED physician will try steroids as well as valacyclovir. Patient is on a sliding scale for insulin discussed close monitoring. In addition patient has chronic pain in his legs this
is not new. He is seen by pain management for this CPK checked and negative there is no obvious swelling or infection on exam he is stable for discharge home with outpatient follow-up
<ALANA Santos - Last Filed: 02/21/25 00:06>
*Critical Care Note
Total Time (30-74mins, 75-104mins- exclusive of procedures): Not Applicable
ED Attending Note
<ALANA Santos - Last Filed: 02/21/25 00:06>
-
Portions of this chart may have been created with voice recognition software.� Occasional wrong word or��sound alike� substitutions may have occurred due to the inherent limitations of voice recognition software.
<Thor Apodaca DO - Last Filed: 02/21/25 07:10>
ED Attending Note
Patient seen and examined by attending physician: Yes
I performed the substantive portion of visit, reviewed & personally made and approve the management plan that is documented in note by myself or JAKUB.: Yes
ED Attending Note:
Seen by me the other day. Agree with above will discharge but now discussed again with patient and at this time we will proceed with steroids. The patient is agreeable monitor sugars closely and treat accordingly. He will follow-up with
neurological surgery teacher. Also plan to cover with antivirals
Discharge Plan
Departure
Patient Disposition: Home (Routine Discharge)
Date of Disposition: 02/20/25
Time of Disposition: 23:31
Patient with high blood pressure during this ER visit?: Yes
Condition: Fair
Covid-19: Not Applicable
Discharge Problem:
Benitez's palsy
Instructions: Benitez's Palsy (DC), BLOOD PRESSURE
Prescriptions:
New
valacyclovir [Valtrex] 1 gram tablet
1,000 mg PO TID Qty: 21 0RF
prednisone 20 mg tablet
60 mg PO DAILY Qty: 27 0RF
Rx Instructions:
60 mg orally for 7 days followed by 40 mg for 2 days and 20 mg for 2 days
No Action
tramadol 50 mg Tablet
100 mg PO HS
eszopiclone [Lunesta] 3 mg Tablet
3 mg PO HS
(DME) pen needle, diabetic [Pen Needle] 29 gauge x 1/2' needle
See Rx Instructions .Route Qty: 100 0RF
Rx Instructions:
As directed
tramadol 50 mg Tablet
50 mg PO DAILY
rosuvastatin [Crestor] 10 mg Tablet
10 mg PO DAILY
cholecalciferol (vitamin D3) [Vitamin D3] 50 mcg (2,000 unit) Capsule
50 mcg PO DAILY
icosapent ethyl [Vascepa] 1 gram Capsule
2 g PO BID
dapagliflozin propanediol [Farxiga] 10 mg Tablet
10 mg PO DAILY
Trulicity 3 mg/0.5 mL Pen Injector
3 mg SC QWEEK
Patient Comments:
on friday
Neurontin
900 mg PO BID
insulin aspart U-100 [Novolog FlexPen U-100 Insulin] 100 unit/mL (3 mL) insulin pen
4 unit SC AC
Rx Instructions:
humalog - 4units with small meal (<35 carbs)
6 units with med meal (35-55 carbs)
8 units with large meal (>55 carbs)
+ sliding scale coverage with meals based on blood sugar
insulin glargine [Lantus Solostar U-100 Insulin] 100 unit/mL (3 mL) insulin pen
18 unit SC HS
Referrals:
Bo De La Paz DO [Family Provider] -
Activity Restrictions/Additional Instructions:
as discussed A prescription for prednisone and valacyclovir was sent to your pharmacy take as directed.
You were given the first dose here in the ER.
Closely monitor your blood sugar while you are taking prednisone as this will raise your blood sugar.
Follow-up with your family doctor next of days return if any worsening of symptoms
Interventions
Interventions:
*Risk Screen - Suicide Last Done: 02/20/25 19:23
*General Assessment Last Done: 02/20/25 19:23
*Neglect/Abuse Screening Last Done: 02/20/25 19:23
*ED- Fall Risk Assessment Last Done: 02/20/25 19:23
*ED COVID-19 Vaccine History Last Done: 02/20/25 19:23
*Nursing Disposition Last Done: 02/21/25 00:08
ED- Neurological Assessment Last Done: 02/20/25 20:50
ED-Skin Assessment Last Done: 02/20/25 20:50
Discharge Date and Time
Discharge Date/Time: 02/21/25 00:08
Print Language: CITIZEN [place]
[2025-02-20 21:43] VITALS: BP 147/83
[2025-02-20 21:44] VITALS: BMI 26.2
[2025-02-20 22:00] VITALS: BP 149/91
[2025-02-20 22:17] LABS: ALT (SGPT) 30 U/L (0-50); AST (SGOT) 33 U/L (17-59); Alkaline Phosphatase 56 U/L (38-126); Blood Urea Nitrogen 17 mg/dl (9-20); Calcium 9.2 mg/dl (8.4-10.2); Carbon Dioxide 23 mmol/L (22-30); Chloride 100 mmol/L (98-107); Creatine Phosphokinase 100 U/L (55-170); Estimated Creatinine Clearance 101 ml/min; Glucose 152 mg/dl (70-99); Potassium 4.6 mmol/L (3.5-5.1); Sodium 135 mmol/L (135-145); Total Bilirubin 0.9 mg/dl (0.2-1.3); Total Protein 7.4 g/dl (6.3-8.2); eGFR > 60.00
[2025-02-20 22:36] LABS: Hematocrit 38.6 % (39.0-52.0); Hemoglobin 13.4 g/dL (13.0-18.0); Mean Corp Hgb Conc. 34.7 g/dL (33.0-37.0); Mean Corpuscular Hgb 32.4 pg (27.0-31.0); Mean Corpuscular Volume 93.5 fL (80.0-94.0); Mean Platelet Volume 9.2 fL (7.4-10.4); Platelet Count 205 10^3/uL (130-400); Red Blood Cell Count 4.19 10^6/uL (4.70-6.10); Red Cell Dist. Width 14.7 % (11.5-14.5); White Blood Cell Count 5.6 10^3/uL (4.8-10.8)
[2025-02-20 22:56] LABS: % Basophils 0.5 % (0-2); % Eosinophils 1.8 % (0-6); % Immature Granulocytes 0.2 % (0-0.5); % Lymphocytes 39.3 % (20.5-51.1); % Monocytes 6.7 % (1.7-9.3); % Neutrophils 51.5 % (42.2-75.2); Absolute Eosinophils 0.1 10^3/uL (0-0.7); Absolute Lymphocytes 2.2 10^3/uL (1.2-3.4); Absolute Monocytes 0.4 10^3/uL (0.1-0.6); Absolute Neutrophils 2.9 10^3/uL (1.4-6.5); Nucleated Red Blood Cells % 0 % (-)
[2025-02-20 23:00] VITALS: BP 147/87
[2025-02-20] MEDS: DELTASONE 60 MG PO (23:41)
[2025-02-20] MEDS: VALTREX 1000 MG PO (23:42)
[2025-02-21 00:04] VITALS: BP 147/90
== END 2025-02-21 00:08 | disposition home or self-care (01) ==
LOC: EMR 19:01
PROVIDERS: Nurse Practitioner; EMERGENCY PHYSICIAN Emergency Medicine; FAMILY PHYSICIAN Family Medicine
DX: G51.0 Bell's palsy (principal); R03.0 Elevated blood-pressure reading, without diagnosis of hypertension; G89.29 Other chronic pain; M79.605 Pain in left leg; M79.604 Pain in right leg; E78.00 Pure hypercholesterolemia, unspecified; E11.9 Type 2 diabetes mellitus without complications
CPT/HCPCS: 99283; 80053; 82550; 85025

== ENCOUNTER → 2025-05-23 09:48 | Outpatient (REF) | payer OTHER, SELFPAY | LOC: PAVMRI 09:48 | PROVIDERS: ATTENDING PHYSICIAN Family Medicine | DX: G51.0 Bell's palsy (principal) | CPT/HCPCS: 70553; A9575 ==